=== PATIENT | male | born 1990 | race Caucasian/White ===

== ENCOUNTER 2016-11-18 15:15 | Inpatient (IN) | payer BC, OTHER ==
[~2016-11-18] VITALS: Ht 167.6 cm; Wt 86.2 kg
[2016-11-18 18:31] VITALS: BP 127/85
[2016-11-18] MEDS ORDERED: THIAMINE HCL 200 MG/2 ML VIAL IM ONE (19:00)
[2016-11-18] MEDS ORDERED: ONDANSETRON 4 MG/2 ML VIAL IM PRN (19:00)
[2016-11-18] MEDS ORDERED: LORAZEPAM 2 MG/1 ML VIAL IM PRN (19:00)
[2016-11-18] MEDS ORDERED: BUPRENORPHINE HCL 2 MG TAB.SUBL SL PRN (19:00)
[2016-11-18] MEDS ORDERED: LORAZEPAM 1 MG TABLET PO PRN ×2 (19:00)
[2016-11-18] MEDS ORDERED: HYDROXYZINE PAMOATE 25 MG CAPSULE PO PRN (19:00)
[2016-11-18] MEDS ORDERED: IBUPROFEN 600 MG TABLET PO PRN (19:00)
[2016-11-18] MEDS ORDERED: MAGNESIUM HYDROXIDE 30 ML LIQUID UDC PO PRN (19:00)
[2016-11-18] MEDS ORDERED: MAG HYDROX/AL HYDROX/SIMETH 30 ML LIQUID UDC PO PRN (19:00)
[2016-11-18] MEDS ORDERED: LOPERAMIDE HCL 2 MG CAPSULE PO PRN ×2 (19:00)
[2016-11-18] MEDS ORDERED: diphenhydrAMINE 50 MG CAPSULE PO PRN (19:00)
[2016-11-18] MEDS ORDERED: MIRALAX 17 GM POWD.PACK PO PRN (19:00)
[2016-11-18] MEDS ORDERED: ACETAMINOPHEN 325 MG TABLET PO PRN (19:00)
[2016-11-18 20:00] VITALS: BP 116/83
--- NOTE | 2016-11-18 20:15 | NUR ---
ADMISSION NOTE Pt arrived ambulatory to the [facility] [place] 3rd floor (accompanied by [facility] staff) at approximately 1816. Pt is a 26 y/o male (born on 1990) being admitted for ETOH, Heroin, and Marijuana dependence and use. Pt has NKA, and denies any PMH. Pt denies having any history of seizures also. Pt is unmarried and has one daughter. Pt stated " I'm homeless, and I don't work right now." Pt reported his highest level of education being high school. Pt reported not having a primary care physician or a psych doctor at this time. Pt didn't arrive with any medication but reported " I used to take Seroquel 100 mg at night. That's just what they gave me, but I wasn't diagnosed with insomnia." Pt was then asked about his substance use history including; what substance(s) he uses, when did he first start using them, what route, how frequent, usual amount he uses and the date and amount of his last use. Pt stated " I started using Heroin when I was 20 y/o. I needles and I share needles too. I relapsed 3 months ago and since then I've been using about 1 gram everyday. I has half a gram (0.5 g) before I came here today (11/18/16). I started drinking and smoking marijuana when I was 18 y/o. I've been drinking about a fifth (750 ml) of Vodka and smoking 1 gram a day for the past 3 months. I smoked 1 gram of weed (marijuana) and I had half a pint of Vodka before I came here (11/18/16). " Pt was then asked about his treatment hx. Pt replied "I've been to so many rehabs. The last one I've been to is [facility] in June." Upon assessment pt is notably intoxicated aeb delayed speech and slurring, but pt is a/o x 4 with no changes in LOC. Pt's odor is that of alcohol. Pt is fidgety, but calm and cooperative with a flat affect. Pt's breathing is even and unlabored with no SOB noted or reported. Skin is dry and intact with no bruises, lesions, lacerations, rashes, abrasions noted or reported. Skin turgor indicates adequate hydration. Capillary refill is less than 3 seconds. Bowel sounds present in all 4 quadrants. Abdomen soft and non distended. Hand acid condenser strong bilaterally, and PERRLA noted. Pt denies any pain/discomfort at this time. Pt was encouraged to notify staff of any changes in condition or of any concerns. Pt verbalized an understanding. All safety measures in place; side rails up x 2, bed locked and in low position, and call light within reach. MD aware of pt's arrival. Will continue to monitor.
[2016-11-18 20:28] LABS: BASOPHILS % (AUTO) 0.3 % (0.0-2.0); EOSINOPHILS # (AUTO) 0.2 K/uL (0.0-0.7); EOSINOPHILS % (AUTO) 2.4 % (0.0-7.0); HEMATOCRIT 40.1 % (36.7-47.1); HEMOGLOBIN 13.9 g/dL (12.5-16.3); LYMPHOCYTES # (AUTO) 2.9 K/uL (20.0-40.0); LYMPHOCYTES % (AUTO) 42.4 % (20.5-51.5); MEAN CORPUSCULAR HEMOGLOBIN 29.6 uug (23.8-33.4); MEAN CORPUSCULAR HGB CONC 35 g/dL (32.5-36.3); MEAN CORPUSCULAR VOLUME 85.7 fL (73.0-96.2); MONOCYTES # (AUTO) 0.7 K/uL (2.0-10.0); MONOCYTES % (AUTO) 10.3 % (0.0-11.0); NEUTROPHILS # (AUTO) 3.1 K/uL (1.8-8.9); NEUTROPHILS % (AUTO) 44.6 % (38.5-71.5); PLATELET COUNT (AUTO) 268 K/uL (152-348); RED BLOOD CELL COUNT(AUTO) 4.68 MIL/uL (4.06-5.63); RED CELL DISTRIBUTION WIDTH 13.4 % (12.1-16.2); WHITE BLOOD COUNT (AUTO) 6.9 K/uL (3.6-10.2)
[2016-11-18 20:31] LABS: *AMPHETAMINE, URINE NEGATIVE (NEGATIVE); *BARBITURATE, URINE NEGATIVE (NEGATIVE); *CANNABINOID, URINE POSITIVE (NEGATIVE); *COCCAINE, URINE NEGATIVE (NEGATIVE); *OPIATE, URINE POSITIVE (NEGATIVE); *PHENCYCLIDINE SCREEN,URINE NEGATIVE (NEGATIVE)
[2016-11-18 20:44] LABS: ALBUMIN 3.6 g/dL (3.4-5.0); BILIRUBIN,TOTAL 0.6 mg/dL (0.2-1.0); CALCIUM 8.4 mg/dL (8.5-10.1); CREATININE 0.9 mg/dL (0.6-1.3); POTASSIUM 3.9 mmol/L (3.5-5.1); TOTAL PROTEIN, SERUM 8.1 g/dL (6.4-8.2)
--- NOTE | 2016-11-18 20:45 | NUR ---
REPORTED CRITICAL LAB VALUE. Tian Martin from [facility] lab called at approximately 2044 to report a blood alcohol level of 0.17 for this pt. At this time pt ambulates with a steady gait and has vitals within normal limits. Will continue to monitor.
[2016-11-18 20:55] LABS: THYROID STIMULATING HORMONE 2.782 mIU/mL (0.358-3.740)
[2016-11-18 21:08] LABS: HIV-1 p24 ANTIGEN NON REACTIVE (NONREACTIVE); HIV-1/2 ANTIBODY NON REACTIVE (NONREACTIVE)
[2016-11-19] VITALS: BP 113/57
[2016-11-19 04:00] VITALS: BP 129/74
--- NOTE | 2016-11-19 07:08 | NUR ---
END OF SHIFT NOTE Pt is a 26 y/o male admitted for ETOH, Heroin, and Marijuana dependence and use. Pt has NKA, and denies any PMH. Pt was placed on a 5 day Ativan and 5 Subutex taper , scheduled to start today. Pt didn't receive any PRNS during the day shift. Pt slept for a total of 7 hours. All safety measures in place; side rails up x 2, bed locked and in low position, and call light within reach. Endorsed to the oncoming nurse.
--- NOTE | 2016-11-19 07:17 | NUR ---
Start of Shift Notes: Received patient in his room. Alert and verbally responsive. Oriented x 4. Respirations even and unlabored. No SOB noted. Skin warm and dry to touch. Abdomen soft and non-distended with (+) BS in all 4 quadrants. No complains of N/V/D or constipation noted. No complains of abdominal discomfort noted. Bladder non-distended. No complains of dysuria noted. Voids independently. Ambulatory ad gilles with steady gait. Patient is a 26 year old male admitted for ETOH and opiate dependence who was placed on a 5-day Ativan and 5-day Subutex taper as ordered which will be started today. Denies any past medical hx. NKA. FULL CODE. Regular diet. On fall and seizure precautions. Educated patient on the current plan of care for the day and the medication regimen. Encouraged oral fluid intake and encouraged group participation to learn new skills to prevent relapse.
[2016-11-19 08:00] VITALS: BP 128/83
[2016-11-19] MEDS ORDERED: TUBERCULIN,PURIF.PROT.DERIV. 5 TU/0.1 ML TEST ID ONE (09:00)
[2016-11-19] MEDS: FOLIC ACID 1 MG TABLET PO SCH (09:07)
[2016-11-19] MEDS: METHOCARBAMOL 750 MG TABLET PO PRN (09:07)
[2016-11-19] MEDS: DICYCLOMINE HCL 20 MG TABLET PO PRN (09:07)
[2016-11-19] MEDS: BUPRENORPHINE HCL 2 MG TAB.SUBL SL SCH ×4 (09:07→21:54)
[2016-11-19] MEDS: THIAMINE HCL 100 MG TABLET PO SCH (09:08)
[2016-11-19] MEDS: LORAZEPAM 1 MG TABLET PO SCH ×4 (09:08→21:54)
[2016-11-19] MEDS: MULTIVITAMINS,THERAPEUTIC TABLET PO SCH (09:08)
--- NOTE | 2016-11-19 09:08 | NUR ---
Robaxin 750mg and Bentyl 20mg PO given: Patient noted with complain of 5/10 body aches related to withdrawal symptoms. Also noted with complains of abdominal cramps. COWS 8. Medicated patient with Robaxin 750mg and Bentyl 20 mg PO as ordered. Will monitor for effectiveness.
--- NOTE | 2016-11-19 10:08 | NUR ---
Re-assessment: Per patient, PRN Robaxin and Bentyl were mildly effective in reducing body aches and stomach cramps. Dr. Bree benz.
[2016-11-19] MEDS: ONDANSETRON ODT 4 MG TAB.RAPDIS SL PRN ×2 (10:59→22:00)
--- NOTE | 2016-11-19 10:59 | NUR ---
PRN Ativan 2 mg PO given/Zofran 4 mg ODT given: Patient's CIWA 16 - presented with agitation, moderate anxiety and intermittent nausea. Per MD, administer Ativan 2 mg PO from PRN dose and add Zofran 4 mg ODT. Will monitor for effectiveness.
[2016-11-19] MEDS ORDERED: CLONIDINE HCL 0.1 MG TABLET PO PRN (11:15)
--- NOTE | 2016-11-19 11:34 | NUR ---
New Orders: New orders received from Dr. Giron for patient to be on Clonidine 0.1mg PO PRN. Orders noted and carried out. Education provided.
--- NOTE | 2016-11-19 11:59 | NUR ---
Re-assessment: Per patient, Zofran has been effective in ceasing nausea. Ativan 2 mg PO has been effectiev in reducing patient's withdrawal symptoms. Less agitation, less anxiety noted. CIWA 7.
[2016-11-19 12:00] VITALS: BP 116/75
[2016-11-19] MEDS ORDERED: QUET100T PO (14:14)
[2016-11-19 16:00] VITALS: BP 131/86
--- NOTE | 2016-11-19 18:42 | NUR ---
End of Shift Notes: Patient is a 26 year old male admitted for ETOH/opiate and marijuana dependence who was placed on a 5-day Subute and 5-day Ativan taper as ordered. No adverse reactions noted. Taper was started today. Denies any past medical hx. Prior to admission patient was using 1 gram of Heroin IV and 5th of Vodka x 3 months. On fall and seizure precautions. VS monitored closely. No significant abnormalities noted. Patient's withdrawal symptoms were closely monitored. Patient presented with chills, hot flashes, anxiety, agitation, sweating, pupil dilation, muscle aches, joint pain, restlessness, nausea and fatigue. Initial COWS 8, CIWA 7, then increased to CIWA 16 at 1059. Patient was medicated with PRN Ativan 2 mg at 1059 and Zofran due to high CIWA score and nausea with help after 1 hour. Last COWS 5/CIWA 5. Per patient, Ativan and Subutex has been helping him with his withdrawal symptoms. Unable to participate in group today due to his withdrawal symptoms. Oral fluids encouraged. Call light in reach. All needs met and attended. Will continue to monitor closely.
[2016-11-19 20:00] VITALS: BP 135/84
--- NOTE | 2016-11-19 20:13 | NUR ---
START OF SHIFT NOTE Pt is a 26 y/o male admitted for ETOH, Heroin, and Marijuana dependence and use. Pt has NKA, and denies any PMH. Per day shift pt started a 5 day Ativan and 5 Subutex taper , and is tolerating medication well with no s/e or a/r reported. Pt received Ativan 2 mg PO x 1 , Robaxin 750 mg PO PRN , Bentyl 20 mg PO PRN, and Zofran 4 mg ODT during the day shift. last COW: 5 and CIWA: 5 (1600). At this time pt is in the recreational room with others watching a comedy show. Pt stated " I'm doing alright." Pt denied any pain/discomfort at this time. Pt was encouraged to notify staff of any changes in condition or of any concerns. Pt verbalized an understanding. Will continue to monitor.
--- NOTE | 2016-11-19 22:00 | NUR ---
ZOFRAN PRN ADMINISTRATION Pt stated "Can I have something for my nausea?" Zofran 4 mg ODT PRN was given. Pt was encouraged to notify staff of any changes in condition or of any concerns. Pt verbalized an understanding. All safety measures in place. Will monitor for effectiveness.
--- NOTE | 2016-11-19 23:00 | NUR ---
MAURIZIO PRN REASSESSMENT Pt stated " I'm not nauseous anymore. PRN effective. Will continue to monitor.
[2016-11-20] VITALS: BP 123/90
--- NOTE | 2016-11-20 02:56 | NUR ---
BENADRYL PRN ADMINISTRATION Pt stated " I can't fall asleep. Is there anything I can take?" Benadryl 50 mg PO PRN was given. Pt was encouraged to notify staff of any changes in condition or of any concerns. Pt verbalized an understanding. All safety measures in place. Will monitor for effectiveness.
--- NOTE | 2016-11-20 03:56 | NUR ---
BENADRYL PRN REASSESSMENT Pt is asleep in bed with no signs of discomfort/distress noted. Breathing is even and unlabored. PRN effective. All safety measures in place. Will continue to monitor.
--- NOTE | 2016-11-20 04:00 | NUR ---
COW, CIWA, AND VITALS REFUSED Pt refused to be assessed and have vitals taken at this time. Pt was encouraged x 3 with risks and benefits explained but the pt still declined. All safety measures in place. Will continue to monitor. Addendum: 11/20/16 at 0639 by PIPER DURON LVN Amended: Links added.
--- NOTE | 2016-11-20 07:35 | NUR ---
Start of Shift Notes: Received patient in his room. Alert and verbally responsive. Oriented x 4. Respirations even and unlabored. No SOB noted. Skin warm and dry to touch. Abdomen soft and non-distended with (+) BS in all 4 quadrants. No complains of N/V/D or constipation noted. No complains of abdominal discomfort noted. Bladder non-distended. No complains of dysuria noted. Voids independently. Ambulatory ad gilles with steady gait. Patient is a 26 year old male admitted for ETOH and opiate dependence who was placed on a 5-day Ativan and 5-day Subutex taper that was started on 11/19/2016. Denies any past medical hx. NKA. FULL CODE. Regular diet. On fall and seizure precautions. Educated patient on the current plan of care for the day and the medication regimen. Encouraged oral fluid intake and encouraged group participation to learn new skills to prevent relapse.
--- NOTE | 2016-11-20 07:37 | NUR ---
END OF SHIFT NOTE Pt is a 26 y/o male admitted for ETOH, Heroin, and Marijuana dependence and use. Pt has NKA, and denies any PMH. Pt was placed on a 5 day Ativan and 5 Subutex taper(day 2) , andf is tolerating medication well, with no s/e or a/r reported or noted. Pt received Zofran 4 mg ODT and Benadryl 50 mg PO PRN during the shift. Pt slept for a total of 4 hours. All safety measures in place; side rails up x 2, bed locked and in low position, and call light within reach. Endorsed to the oncoming nurse.
[2016-11-20 08:00] VITALS: BP 108/77
[2016-11-20] MEDS: LORAZEPAM 1 MG TABLET PO SCH ×3 (08:27→21:25)
[2016-11-20] MEDS: FOLIC ACID 1 MG TABLET PO SCH (08:27)
[2016-11-20] MEDS: ONDANSETRON ODT 4 MG TAB.RAPDIS SL PRN (08:27)
[2016-11-20] MEDS: MULTIVITAMINS,THERAPEUTIC TABLET PO SCH (08:27)
[2016-11-20] MEDS: DICYCLOMINE HCL 20 MG TABLET PO PRN (08:27)
[2016-11-20] MEDS: THIAMINE HCL 100 MG TABLET PO SCH (08:27)
--- NOTE | 2016-11-20 08:27 | NUR ---
PRN Zofran/Bentyl/Robaxin/Motrin/Clonidine PO given: Patient's COWS 11, CIWA 13. Presented with chills, hot flashes, sweating, nausea, muscle aches and pains 6/10, headache 6/10, stomach cramps, anxiety, pupil dilation and nausea. Medicated patient with the above meds. Will continue to monitor for effectiveness.
[2016-11-20] MEDS: BUPRENORPHINE HCL 2 MG TAB.SUBL SL SCH ×3 (08:28→21:00)
[2016-11-20] MEDS: METHOCARBAMOL 750 MG TABLET PO PRN (08:28)
[2016-11-20 09:07] LABS: HCV AB <0.1 s/co ratio (0.0-0.9); HEPATITIS B CORE AB, IgM Negative (Negative); HEPATITIS B SURFACE AG Negative (Negative)
[2016-11-20 09:27] LABS: ALBUMIN 3.4 g/dL (3.4-5.0); BILIRUBIN,DIRECT 0.1 mg/dL (0.0-0.2); BILIRUBIN,TOTAL 0.5 mg/dL (0.2-1.0); CALCIUM 9.1 mg/dL (8.5-10.1); CREATININE 0.8 mg/dL (0.6-1.3); MAGNESIUM 2.2 mg/dL (1.8-2.4); POTASSIUM 4.3 mmol/L (3.5-5.1); TOTAL PROTEIN, SERUM 7.8 g/dL (6.4-8.2)
--- NOTE | 2016-11-20 09:27 | NUR ---
Re-assessment: Per patient, PRN Zofran, Robaxin, Motrin, Bentyl and Clonidine were effective in reducing nausea, headache, muscle aches, PL 2/10, chills, abdominal cramps, anxiety and hot flashes. Will continue to monitor closely.
[2016-11-20 12:00] VITALS: BP 102/53
[2016-11-20] MEDS: GABAPENTIN 300 MG CAPSULE PO SCH ×2 (12:22→16:30)
--- NOTE | 2016-11-20 12:47 | NUR ---
Therapist encouraged client to attend groups.
[2016-11-20] MEDS: BACLOFEN 10 MG TABLET PO SCH ×2 (14:05→21:25)
[2016-11-20] MEDS: CLONIDINE HCL 0.1 MG TABLET PO SCH ×2 (14:05→21:00)
[2016-11-20] MEDS: DICYCLOMINE HCL 20 MG TABLET PO SCH ×2 (14:05→21:25)
[2016-11-20 16:00] VITALS: BP 91/51
--- NOTE | 2016-11-20 16:30 | NUR ---
Mylanta 30cc PO given: Patient requested for Mylanta due to heatburn. PRN Mylanta 30cc PO was given as ordered. Will monitor for effectiveness.
--- NOTE | 2016-11-20 17:30 | NUR ---
Re-assessment: Per patient, PRN Mylanta was effective in reducing heartburn.
--- NOTE | 2016-11-20 18:50 | NUR ---
End of Shift Notes: Patient is a 26 year old male admitted for ETOH/opiate and marijuana dependence who was placed on a 5-day Subute and 5-day Ativan taper as ordered. No adverse reactions noted. Taper was started today. Denies any past medical hx. Prior to admission patient was using 1 gram of Heroin IV and 5th of Vodka x 3 months. On fall and seizure precautions. VS monitored closely. No significant abnormalities noted. Patient's withdrawal symptoms were closely monitored. Patient presented with chills, hot flashes, anxiety, agitation, sweating, , muscle aches, joint pain, nausea and fatigue. Initial COWS 11, CIWA 13. Patient was medicated with PRN Zofran, Robaxin, Motrin, Bentyl and Clonidine as ordered with help after 1 hour. Last COWS 4/CIWA 4. Mylanta 30cc PO PRN was given at 1630 due to complain of heartburn with help after 1 hour. Patient was started on routine Gabapentin, Baclofen, Clonidine and Bentyl as ordered to manage his withdrawal symptoms. Per patient, Ativan and Subutex has been helping him with his withdrawal symptoms. Unable to participate in group today due to his withdrawal symptoms. Oral fluids encouraged. Call light in reach. All needs met and attended. Will continue to monitor closely.
[2016-11-20 20:00] VITALS: BP 90/51
--- NOTE | 2016-11-20 20:20 | NUR ---
START OF SHIFT NOTE Pt is a 26 y/o male admitted for ETOH, Heroin, and Marijuana dependence and use. Pt has NKA, and denies any PMH. Per day shift pt continues on a 5 day Ativan and 5 Subutex taper (day 2) , and is tolerating medication well with no s/e or a/r reported. New orders for Seroquel 100 mg PO QHS was give. Noted and carried out. Pt received Zofran 4 mg ODT PRN, Robaxin 750 mg PO PRN, Motrin PO PRN, Bentyl PO PRN, Clonidine 0.1 mg PO PRN, and Mylanta PO PRN during the day shift. last COW: 4 and CIWA: 4 (1600). At this time pt is asleep in bed with no signs of discomfort/distress noted. Breathing is even and unlabored. All safety measures in place; side rails up x 2, bed locked and in low position, Will continue to monitor.
[2016-11-20] MEDS: QUETIAPINE FUMARATE 100 MG TABLET PO SCH (21:26)
--- NOTE | 2016-11-21 | NUR ---
PATRICIO, ERVIN, AND VITALS REFUSED Pt refused to be assessed and have vitals taken at this time. Pt was encouraged x 3 with risks and benefits explained but the pt refused. All safety measures in place. Will continue to monitor. Addendum: 11/21/16 at 0205 by PIPER DURON LVN Amended: Links added.
--- NOTE | 2016-11-21 04:00 | NUR ---
PATRICIO, ERVIN, AND VITALS REFUSED Pt is refused to be assessed and have vitals taken at this time. Pt was encouraged x 3 with risks and benefits explained, but the pt still refused. All safety measures in place. Will continue to monitor. Addendum: 11/21/16 at 0549 by PIPER DURON LVN Amended: Links added.
--- NOTE | 2016-11-21 07:00 | NUR ---
END OF SHIFT NOTE Pt is a 26 y/o male admitted for ETOH, Heroin, and Marijuana dependence and use. Pt has NKA, and denies any PMH. Pt was placed on a 5 day Ativan and 5 Subutex taper(day 3) , and is tolerating medication well, with no s/e or a/r reported or noted. Pt didn't receive any PRNS during the shift. Last COW: 0 and CIWA: 0 (1999). Pt slept for a total of 7 hours. All safety measures in place; side rails up x 2, bed locked and in low position, and call light within reach. Endorsed to the oncoming nurse.
--- NOTE | 2016-11-21 07:31 | NUR ---
START OF SHIFT NOTE: Received report from production supervisor off shift nurse. Pt is a 26 y/o male admitted 11-18-16 for ETOH, Heroin, and Marijuana dependence. Pt is on a 5 day Subutex and 5 day Ativan taper. Tolerating well. Pt is alert and oriented X4. Color good, skin warm and dry. Respirations even and unlabored. Pt resting in bed at this time. Safety precautions observed. Call light within reach. Will continue to monitor.
[2016-11-21 08:07] VITALS: BP 114/70
[2016-11-21] MEDS ORDERED: BUPRENORPHINE HCL 2 MG TAB.SUBL SL SCH (09:00)
[2016-11-21] MEDS: MULTIVITAMINS,THERAPEUTIC TABLET PO SCH (09:31)
[2016-11-21] MEDS: LORAZEPAM 1 MG TABLET PO SCH ×4 (09:31→20:30)
[2016-11-21] MEDS: GABAPENTIN 300 MG CAPSULE PO SCH ×2 (09:31→14:31)
[2016-11-21] MEDS: FOLIC ACID 1 MG TABLET PO SCH (09:31)
[2016-11-21] MEDS: BACLOFEN 10 MG TABLET PO SCH (09:31)
[2016-11-21] MEDS: DICYCLOMINE HCL 20 MG TABLET PO SCH ×3 (09:32→20:31)
[2016-11-21] MEDS: THIAMINE HCL 100 MG TABLET PO SCH (09:32)
[2016-11-21] MEDS: CLONIDINE HCL 0.1 MG TABLET PO SCH ×3 (09:32→20:31)
--- NOTE | 2016-11-21 09:35 | NUR ---
VSS COWS 8 CIWA 9 c/o body aches, sweating, nausea and anxiety.
[2016-11-21 10:19] LABS: CALCIUM 9.1 mg/dL (8.5-10.1); CARBON DIOXIDE 21 mmol/L (21-32); CHLORIDE 108 mmol/L (98-107); CREATININE 0.7 mg/dL (0.6-1.3); GFR > 130 mL/min (>60); GLUCOSE 94 mg/dL (74-106); MAGNESIUM 2.2 mg/dL (1.8-2.4); PHOSPHOROUS 5.1 mg/dL (2.5-4.9); POTASSIUM 4.6 mmol/L (3.5-5.1); SODIUM SERUM 142 mmol/L (136-145); UREA NITROGEN, BLOOD 10 mg/dL (7-18)
[2016-11-21] MEDS ORDERED: KETOROLAC TROMETHAMINE 30 MG INJ IM PRN (12:00)
[2016-11-21 12:46] VITALS: BP 110/69
--- NOTE | 2016-11-21 13:35 | NUR ---
VSS CIWA 8 Pt c/o sweating, anxiety and nausea.
[2016-11-21] MEDS: BACLOFEN 20 MG TABLET PO SCH ×2 (14:31→20:31)
[2016-11-21] MEDS: BUPRENORPHINE HCL 2 MG TAB.SUBL SL SCH ×2 (14:31→20:32)
--- NOTE | 2016-11-21 14:38 | NUR ---
COWS 7 C/O nausea, sweating and anxiety. Also c/o constipation. Miralax given po prn
[2016-11-21] MEDS ORDERED: BACLOFEN 10 MG TABLET PO SCH (15:00)
[2016-11-21 17:25] VITALS: BP 118/74
--- NOTE | 2016-11-21 18:38 | NUR ---
END OF SHIFT NOTE: Report given to assembler 1st shift nurse. Pt is a 26 y/o male admitted 11-18-16 for ETOH, Heroin, and Marijuana dependence. Pt is on a 5 day Subutex and 5 day Ativan taper. Tolerating well. Pt is alert and oriented X4. Color good, skin warm and dry. Respirations even and unlabored. Vital signs have remained stable throughout shift. Last COWS 7 CIWA 7 @ 1700. Pt received Miralax po prn @ 1435 for constipation. Safety precautions observed. Call light within reach.
[2016-11-21 20:00] VITALS: BP 130/92
--- NOTE | 2016-11-21 20:00 | NUR ---
START OF SHIFT NOTE PATIENT ALERT AND ORIENTED X 4. RESPIRATION EVEN AND UNLABORED. PATIENT REPORTS ANXIETY, HEADACHE 7/10, RESTLESS LEGS, STUFFY NOSE AND DECREASE IN APPETITE. PATIENT ATTENDED GROUPS. NO N/V. RECEIVED REPORT FROM DAY SHIFT NURSE. PATIENT IS A 26 YEAR OLD MALE, ADMITTED FOR ETOH/HEROIN DEPENDENCE. PATIENT IS ON 3RD DAY OF HIS 5 DAY ATIVAN AND 5 DAY SUBUTEX TAPER, TOLERATED WELL. NO ADVERSE REACTION. PATIENT IS FULL CODE, REGULAR DIET AND NO KNOWN ALLERGY. PATIENT DENIES ANY PAST MEDICAL HISTORY. NO SEIZURE HISTORY. PATIENT DRINKS 750 ML DAILY FOR 3 MONTHS, INJECTS 1 GRAM OF HEROIN FOR 3 MONTHS AND SMOKES 1 GRAM OF MARIJUANA FOR 3 MONTHS. SKIN INTACT. ON FALL/SEIZURE PRECAUTION. PATIENT WAS GIVEN MIRALAX DURING THE DAY. LAST CIWA 8 AND COWS 7. SAFETY MEASURES IN PLACE. CALL LIGHT IN REACH. WILL CONTINUE TO MONITOR.
[2016-11-21] MEDS: QUETIAPINE FUMARATE 100 MG TABLET PO SCH (20:31)
[2016-11-21] MEDS ORDERED: GABAPENTIN 300 MG CAPSULE PO SCH (21:00)
--- NOTE | 2016-11-21 21:58 | NUR ---
PRN MOM ADMINISTRATION PATIENT REPORTS DIFFICULTY PASSING STOOL. PRN MOM GIVEN. WILL MONITOR FOR EFFECTIVENESS
[2016-11-22] VITALS: BP 102/61
[2016-11-22 04:00] VITALS: BP 104/72
--- NOTE | 2016-11-22 07:14 | NUR ---
END OF SHIFT NOTE PATIENT ALERT AND ORIENTED X 4. RESPIRATION EVEN AND UNLABORED. PATIENT REPORTS ANXIETY, HEADACHE 7/10, RESTLESS LEGS, STUFFY NOSE AND DECREASE IN APPETITE DURING SHIFT. PATIENT ATTENDED GROUPS. NO N/V. PATIENT WAS GIVEN MOM DUE TO UNABLE TO PASS STOOL AT 2158. ENCOURAGE FLUIDS. ON FALL/SEIZURE PRECAUTION. PATIENT COMPLIANT WITH MEDICATION AND TREATMENT PLAN. SAFETY MEASURES IN PLACE. CALL LIGHT IN REACH. WILL CONTINUE TO MONITOR. SLEPT 8 HOURS 500 ML. VOIDED X 1 . NO BM. LAST COWS 0 AND CIWA 0. MOM INEFFECTIVE. ENDORSED TO DAY SHIFT NURSE.
--- NOTE | 2016-11-22 07:32 | NUR ---
START OF SHIFT NOTE: Received report from shift supervisor melting nurse. Pt is a 26 y/o male admitted 11-18-16 for ETOH, Heroin, and Marijuana dependence. Pt is on a 5 day Subutex and 5 day Ativan taper. Tolerating well. Pt is alert and oriented X4. Color good, skin warm and dry. Respirations even and unlabored. Pt resting in bed at this time. Safety precautions observed. Call light within reach. Will continue to monitor.
[2016-11-22 08:04] VITALS: BP 94/60
[2016-11-22] MEDS: MULTIVITAMINS,THERAPEUTIC TABLET PO SCH (08:35)
[2016-11-22] MEDS: LORAZEPAM 1 MG TABLET PO SCH ×3 (08:35→21:34)
[2016-11-22] MEDS: DICYCLOMINE HCL 20 MG TABLET PO SCH ×3 (08:35→21:35)
[2016-11-22] MEDS: BUPRENORPHINE HCL 2 MG TAB.SUBL SL SCH ×3 (08:35→21:36)
[2016-11-22] MEDS: THIAMINE HCL 100 MG TABLET PO SCH (08:35)
[2016-11-22] MEDS: GABAPENTIN 300 MG CAPSULE PO SCH ×3 (08:35→21:34)
[2016-11-22] MEDS: FOLIC ACID 1 MG TABLET PO SCH (08:35)
[2016-11-22] MEDS: BACLOFEN 20 MG TABLET PO SCH ×3 (08:35→21:35)
[2016-11-22] MEDS: CLONIDINE HCL 0.1 MG TABLET PO SCH ×3 (08:36→21:35)
--- NOTE | 2016-11-22 08:38 | NUR ---
VSS COWS 3 CIWA 4 Pt c/o anxiety, body aches and restless legs. States overall feels improved.
[2016-11-22 12:00] VITALS: BP 118/60
--- NOTE | 2016-11-22 15:11 | NUR ---
VSS COWS 2 CIWA 3. Pt c/o anxiety.
[2016-11-22 17:47] VITALS: BP 132/68
--- NOTE | 2016-11-22 18:45 | NUR ---
END OF SHIFT NOTE: Report given to welder 2nd shift nurse. Pt is a 26 y/o male admitted 11-18-16 for ETOH, Heroin, and Marijuana dependence. Pt is on a 5 day Subutex and 5 day Ativan taper. Tolerating well. Pt is alert and oriented X4. Color good, skin warm and dry. Respirations even and unlabored. Vital signs have remained stable throughout shift. Last COWS 2 CIWA 3 @ 1700. Safety precautions observed. Call light within reach.
[2016-11-22 20:00] VITALS: BP 129/97
--- NOTE | 2016-11-22 20:00 | NUR ---
Start of Shift Pt is a 26 year old male admitted for ETOH/Heroin dependence, placed on 5 day Subutex and 5 day Ativan taper. Pt denies any PMH, NKA, regular diet, fall/seizure precautions - no history of seizures and full code. Upon assessment, pt presented with mild anxiety, reports body aches, skin noted with moderate sweat, reports mild stomach cramps, respirations even and unlabored, denies SOB/chest pain, skin flushed - intact, bowel sounds active x4, abdomen soft. Safety measures in place, call light within reach, side rails up x2, bed locked and in low position. Will continue to monitor.
[2016-11-22] MEDS: QUETIAPINE FUMARATE 100 MG TABLET PO SCH (21:35)
[2016-11-23] VITALS: BP 100/55
--- NOTE | 2016-11-23 | NUR ---
Vital Signs BP 100/55, pulse 66, respirations 16, SpO2 99%, temp 97.6, no reports of pain 0/10 CIWA/COWS deferred d/t pt sleeping - to assess while pt is awake as ordered. Safety measures in place. Will continue to monitor.
[2016-11-23 04:00] VITALS: BP 95/56
--- NOTE | 2016-11-23 07:00 | NUR ---
End of Shift Pt is a 26 year old male admitted for ETOH/Heroin dependence, placed on 5 day Subutex and 5 day Ativan taper. Pt denies any PMH, NKA, regular diet, fall/seizure precautions - no history of seizures and full code. During shift, pt presented with mild anxiety, reports of body aches and abdominal cramping - scheduled taper medications administered, effective in management of s/s of withdrawal as reported by pt, COWS 2 and CIWA 2. No PRN medications administered. Pt slept for 6 hours intake of 855 ml PO and voids x1. Safety measures in place, call light within reach, side rails up x2, bed locked and in low position. Endorsed to day shift nurse.
--- NOTE | 2016-11-23 07:05 | NUR ---
Start of Shift Notes: Received patient in his room. Alert and verbally responsive. Oriented x 4. Respirations even and unlabored. No SOB noted. Skin warm and dry to touch. Abdomen soft and non-distended with (+) BS in all 4 quadrants. No complains of N/V/D or constipation noted. No complains of abdominal discomfort noted. Bladder non-distended. No complains of dysuria noted. Voids independently. Ambulatory ad gilles with steady gait. Patient is a 26 year old male admitted for ETOH and opiate dependence who was placed on a 5-day Ativan and 5-day Subutex taper that was started on 11/19/2016. No adverse reactions ntoed. Denies any past medical hx. NKA. FULL CODE. Regular diet. On fall and seizure precautions. Educated patient on the current plan of care for the day and the medication regimen. Encouraged oral fluid intake and encouraged group participation to learn new skills to prevent relapse. Safety precautions in place. All needs met and attended. Will continue to monitor throughout the day.
[2016-11-23 08:00] VITALS: BP 107/63
[2016-11-23 08:22] LABS: CREATININE 0.8 mg/dL (0.6-1.3); MAGNESIUM 2.2 mg/dL (1.8-2.4); PHOSPHOROUS 4.9 mg/dL (2.5-4.9); POTASSIUM 4.7 mmol/L (3.5-5.1)
[2016-11-23] MEDS: LORAZEPAM 1 MG TABLET PO SCH ×2 (08:23→21:22)
[2016-11-23] MEDS: THIAMINE HCL 100 MG TABLET PO SCH (08:23)
[2016-11-23] MEDS: BACLOFEN 20 MG TABLET PO SCH ×3 (08:23→21:22)
[2016-11-23] MEDS: CLONIDINE HCL 0.1 MG TABLET PO SCH ×3 (08:23→21:21)
[2016-11-23] MEDS: GABAPENTIN 300 MG CAPSULE PO SCH ×3 (08:23→21:21)
[2016-11-23] MEDS: DICYCLOMINE HCL 20 MG TABLET PO SCH ×3 (08:23→21:22)
[2016-11-23] MEDS: BUPRENORPHINE HCL 2 MG TAB.SUBL SL SCH ×2 (08:23→21:21)
[2016-11-23] MEDS: MULTIVITAMINS,THERAPEUTIC TABLET PO SCH (08:23)
[2016-11-23] MEDS: FOLIC ACID 1 MG TABLET PO SCH (08:23)
[2016-11-23 12:00] VITALS: BP 102/71
[2016-11-23 16:00] VITALS: BP 138/67
--- NOTE | 2016-11-23 18:48 | NUR ---
End of Shift Notes: Patient is a 26 year old male admitted for ETOH/opiate and marijuana dependence who was placed on a 5-day Subute and 5-day Ativan taper as ordered. No adverse reactions noted. Taper was started today. Denies any past medical hx. Prior to admission patient was using 1 gram of Heroin IV and 5th of Vodka x 3 months. On fall and seizure precautions. VS monitored closely. No significant abnormalities noted. Patient's withdrawal symptoms were closely monitored. Patient presented with anxiety, sweating, , abdominal cramps and fatigue. Initial COWS 6, CIWA 4. Last COWS 3/CIWA 3. Requires encouragement to attend group and participate in activites to increase socializations. Affect is flat, and appears withdrawn at times. Tolerating oral intake well. Call light in reach. All needs met and attended. Will continue to monitor closely. Safety precautions in place.
[2016-11-23 20:00] VITALS: BP 137/79
--- NOTE | 2016-11-23 20:00 | NUR ---
Start of Shift Pt is a 26 year old male admitted for ETOH/Heroin dependence, placed on 5 day Subutex and 5 day Ativan taper. Pt denies any PMH, NKA, regular diet, fall/seizure precautions - no history of seizures and full code. Upon assessment, pt reports mild aches throughout body, reports feeling less anxious at this time,, respirations even and unlabored, denies SOB/chest pain, skin flushed - intact, bowel sounds active x4, abdomen soft. Safety measures in place, call light within reach, side rails up x2, bed locked and in low position. Will continue to monitor.
[2016-11-23] MEDS: QUETIAPINE FUMARATE 100 MG TABLET PO SCH (21:22)
[2016-11-24] VITALS: BP 102/68
--- NOTE | 2016-11-24 | NUR ---
Vital Signs BP 102/68, pulse 85, respirations 18, SpO2 99%, temp 98, no reports of pain 0/10 CIWA/COWS deferred d/t pt sleeping - to assess while pt is awake as ordered. Safety measures in place. Will continue to monitor.
--- NOTE | 2016-11-24 04:00 | NUR ---
Pt refused to be woken up for 0400 Vital Signs Encouraged x3, however pt continued to refuse. CIWA/COWS deferred d/t pt sleeping - to assess while pt is awake as ordered. Safety measures in place. Will continue to monitor.
--- NOTE | 2016-11-24 07:00 | NUR ---
End of Shift Pt is a 26 year old male admitted for ETOH/Heroin dependence, placed on 5 day Subutex and 5 day Ativan taper. Pt denies any PMH, NKA, regular diet, fall/seizure precautions - no history of seizures and full code. During Shift, pt presented with mild aches throughout body, anxiety, skin flushed - scheduled medications administered, effective in management of s/s of withdrawal, COWS 3, CIWA 3. No PRN medications administered. Pt continues on scheduled taper. Pt slept for 5 hours, intake of 1343ml PO and voids x1. Safety measures in place, call light within reach, side rails up x2, bed locked and in low position. Endorsed to day shift nurse.
--- NOTE | 2016-11-24 07:30 | NUR ---
Start of shift note; Received report from night nurse. Patient is a 26 y/o male admitted on 11/18/16 for ETOH/Opiate dependence, Patient was placed on a 5 day Subutex and 5 day Ativan taper, no adverse reactions noted. NKA, full code status, regular diet. Patient reported history of anxiety and insomnia. Patient is on fall and seizure precaution. Will continue to monitor patient.
[2016-11-24 08:00] VITALS: BP 124/98
[2016-11-24] MEDS ORDERED: BUPRENORPHINE HCL 2 MG TAB.SUBL SL SCH (09:00)
[2016-11-24] MEDS: BACLOFEN 20 MG TABLET PO SCH ×2 (09:12→14:51)
[2016-11-24] MEDS: THIAMINE HCL 100 MG TABLET PO SCH (09:12)
[2016-11-24] MEDS: FOLIC ACID 1 MG TABLET PO SCH (09:12)
[2016-11-24] MEDS: GABAPENTIN 300 MG CAPSULE PO SCH ×3 (09:12→21:20)
[2016-11-24] MEDS: DICYCLOMINE HCL 20 MG TABLET PO SCH ×3 (09:12→21:21)
[2016-11-24] MEDS: CLONIDINE HCL 0.1 MG TABLET PO SCH ×3 (09:12→21:20)
[2016-11-24] MEDS: MULTIVITAMINS,THERAPEUTIC TABLET PO SCH (09:12)
[2016-11-24 12:00] VITALS: BP 119/62
[2016-11-24 14:48] LABS: *AMPHETAMINE, URINE NEGATIVE (NEGATIVE); *BARBITURATE, URINE NEGATIVE (NEGATIVE); *CANNABINOID, URINE NEGATIVE (NEGATIVE); *COCCAINE, URINE NEGATIVE (NEGATIVE); *OPIATE, URINE NEGATIVE (NEGATIVE); *PHENCYCLIDINE SCREEN,URINE NEGATIVE (NEGATIVE)
[2016-11-24 16:00] VITALS: BP 126/83
--- NOTE | 2016-11-24 18:58 | NUR ---
End of shift note; Patient is AOX4. Patient is a 26 y/o male admitted on 11/18/16 for ETOH/Opiate dependence, Patient was placed on a 5 day Subutex and 5 day Ativan taper completed taper without any adverse reactions noted. NKA, full code status, regular diet. Patient reported history of anxiety and insomnia. Patient is on fall and seizure precaution. Patient remained compliant with treatment plan. Patient is medically cleared for discharge tomorrow. Met all needs.
[2016-11-24 20:00] VITALS: BP 141/71
--- NOTE | 2016-11-24 20:00 | NUR ---
Start of Shift Note: Report received from day shift nurse. Pt is a 26 yo male admitted on 11/18/16 for medically-supervised withdrawal from ETOH and opiates. Pt reports drinking 750mL vodka and using 1gm IV heroin daily for 3 months. Pt also reports daily use of marijuana. Pt has completed 5-day Ativan and Subutex tapers and is to discharge tomorrow. Last day shift COWS=2, CIWA=2. Pt reports NKDA/NKFA. Pt is on a regular diet. Pt denies any past med hx. Pt received in room after attending group, and verbalizes readiness for discharge. Pt noted with fine tremor, reports mild anxiety. Bed is in low position and locked, side rails up x2, call light within reach. Will continue to monitor.
[2016-11-24] MEDS ORDERED: BACLOFEN 20 MG TABLET PO PRN (21:00)
[2016-11-24] MEDS: QUETIAPINE FUMARATE 100 MG TABLET PO SCH (21:21)
[2016-11-25] VITALS: BP 105/55
--- NOTE | 2016-11-25 | NUR ---
COWS/CIWA Deferred: COWS and CIWA assessments are deferred wile patient is sleeping. V/S: 97.8, 81, 18, 96%, 105/55. Addendum: 11/25/16 at 0155 by MACKENZIE MATTSON RN Amended: Links added.
[2016-11-25] MEDS ORDERED: Baclofen PO (00:04)
[2016-11-25] MEDS ORDERED: HYDR-3895 PO (00:04)
[2016-11-25] MEDS ORDERED: DICY20TA28 PO (00:04)
[2016-11-25] MEDS ORDERED: CLON0.1T14 PO (00:04)
[2016-11-25] MEDS ORDERED: Gabapentin PO ×2 (00:04)
[2016-11-25] MEDS ORDERED: Ibuprofen PO (00:04)
[2016-11-25 04:00] VITALS: BP 100/59
--- NOTE | 2016-11-25 04:00 | NUR ---
COWS/CIWA Deferred: Ordered 04:00 COWS and CIWA assessments are deferred for sleep. No s/s of acute distress noted. V/S: 97.7, 58, 16, 98%, 100/59. All safety precautions are in place. Will continue to monitor. Addendum: 11/25/16 at 0544 by MACKENZIE MATTSON RN Amended: Links added.
--- NOTE | 2016-11-25 07:04 | NUR ---
End of Shift Note: Pt is a 26 yo male admitted to [facility] on 11/18/16 for medically-supervised withdrawal from ETOH and opiates. Pt denies any PMHx. Pt reports NKDA/NKFA. Pt is on a regular diet. Pt reports drinking 750mL vodka and using 1gm IV heroin daily for 3 months. Pt also reports daily use of marijuana. Pt has completed 5-day Ativan and Subutex tapers and is to discharge today. Scheduled medication regime effectively managed s/s of withdrawal this shift. Last COWS=5, CIWA=2 at 20:00. No PRN medications were necessary this shift. V/S stable throughout shift, with elevated HR of 106 at 20:00. Total fluid intake this shift: 651 ml; output: urine x 1 and BM x 0. Pt currently in bed and slept 7 hours this shift. Pt endorsed to day shift nurse.
--- NOTE | 2016-11-25 07:05 | NUR ---
Start of Shift Notes: Received patient in his room. Alert and verbally responsive. Oriented x 4. Respirations even and unlabored. No SOB noted. Skin warm and dry to touch. Abdomen soft and non-distended with (+) BS in all 4 quadrants. No complains of N/V/D or constipation noted. No complains of abdominal discomfort noted. Bladder non-distended. No complains of dysuria noted. Voids independently. Ambulatory ad gilles with steady gait. Patient is a 26 year old male admitted for ETOH and opiate dependence who was placed on a 5-day Ativan and 5-day Subutex taper that was started on 11/19/2016. No adverse reactions noted. Completed taper. Denies any past medical hx. NKA. FULL CODE. Regular diet. On fall and seizure precautions. Educated patient on the current plan of care for the day and the medication regimen. Educated patient on the discharge process. Patient verbalized good understanding. Encouraged oral fluid intake and encouraged group participation to learn new skills to prevent relapse. Safety precautions in place. All needs met and attended. Will continue to monitor throughout the day.
[2016-11-25 08:00] VITALS: BP 106/75
[2016-11-25 08:03] VITALS: BP 107/65
[2016-11-25] MEDS: MULTIVITAMINS,THERAPEUTIC TABLET PO SCH (08:03)
[2016-11-25] MEDS: GABAPENTIN 300 MG CAPSULE PO SCH (08:03)
[2016-11-25] MEDS: FOLIC ACID 1 MG TABLET PO SCH (08:03)
[2016-11-25] MEDS: CLONIDINE HCL 0.1 MG TABLET PO SCH (08:03)
[2016-11-25] MEDS: DICYCLOMINE HCL 20 MG TABLET PO SCH (08:03)
[2016-11-25] MEDS: THIAMINE HCL 100 MG TABLET PO SCH (08:03)
--- NOTE | 2016-11-25 09:30 | NUR ---
Discharged: Patient left the unit at this time in stable condition. COWS 1, CIWA 1 due to anxiety. No s/s of withdrawal noted. Alert and oriented x 4. VS stable. Education provided regarding patient's discharge instructions, including his UDS result, TB test, Rx from MD Giron and psych MD, and discharge packet. All clothings, belongings and valuables were returned to the patient. Patient did not bring in home meds. All needs met and attended. Escorted off the unit in stable condition.
[2016-11-30 13:06] LABS: *CANNABINOID (THC) Positive (.); *CODEINE Positive (.); *HYDROMORPHONE Negative (Cutoff=300); *OPIATES Positive ng/mL (Cutoff=300)
== END 2016-11-25 09:31 | disposition other institution (70) | DRG 895 ==
LOC: SRC 17:37
PROVIDERS: ADMIT Internal Medicine; ATTEND Internal Medicine
PROC: HZ2ZZZZ Detoxification Services for Substance Abuse Treatment (ICD-10-PCS; principal; 2016-11-18)
PROC: HZ31ZZZ Individual Counseling for Substance Abuse Treatment, Behavioral (ICD-10-PCS; 2016-11-20)
PROC: HZ41ZZZ Group Counseling for Substance Abuse Treatment, Behavioral (ICD-10-PCS; 2016-11-21)
DX: F10.220 Alcohol dependence with intoxication, uncomplicated (principal); F10.230 Alcohol dependence with withdrawal, uncomplicated; F11.23 Opioid dependence with withdrawal; Y90.9 Presence of alcohol in blood, level not specified; G47.00 Insomnia, unspecified; Z59.0 Homelessness; Z83.3 Family history of diabetes mellitus; Z59.1 Inadequate housing; F41.9 Anxiety disorder, unspecified; F17.210 Nicotine dependence, cigarettes, uncomplicated; F12.90 Cannabis use, unspecified, uncomplicated; E86.0 Dehydration; E86.1 Hypovolemia; E83.39 Other disorders of phosphorus metabolism
CPT/HCPCS: 36415; 70030-TC; 80307; 80349; 80361; 83690; 83735; 84100; 84443; 85025; 86580; 86592; 86705; 86803; 87340; 87806; 93005; A4663; G6040-TC; Q0162; Q0163

== ENCOUNTER 2017-12-13 12:46 | Inpatient (IN) | payer OTHER ==
[~2017-12-13] VITALS: Ht 167.6 cm; Wt 72.6 kg
[~2017-12-13 12:46] MED LIST: Baclofen PO; CLON0.1T14 PO; DICY20TA28 PO; Gabapentin PO; HYDR-3895 PO; Ibuprofen PO; QUET100T PO
[2017-12-13 15:40] VITALS: BP 116/81
--- NOTE | 2017-12-13 15:40 | NUR ---
Pre Admission Note Assessed client in intake office. Client appears disheveled, with odorous breath, slump posture, unkempt, odorous, poor eye contact. Client noted with slow slurred speech, swaying back and forth in his seat, appears to be intoxicated from a substance. Client states "I want to get my life together like last time, before I lose everything again." He reports previously ingesting alcohol, and heroin prior to arrival to the hospital. Pt. is A/O X 4 verbally responsive and able provide consent regarding the admission process. Education provided regarding the admission process. Client verbalize good understanding. V/S BP:118/61, P: 105, O2sat: 95% RR: 18, Pain Level: 0. Pt. denies any allergies and request to be full code. COW's and CIWA's unable to be obtain due to intoxication. Will continue with the admission when the client arrives on unit. Dr. Giron made aware of pt.'s arrival.
--- NOTE | 2017-12-13 16:06 | NUR ---
Admission Note Admitted a 27 y/o male for the medically supervised withdrawal from ETOH and Opiates under the care of Dr. Giron. Pt. is A/O x 4. No A/V hallucinations noted. Pt. denies SI and HI. Respiration normal unlabored. Lung sounds cleared bilaterally. Skin dry and intact with no breakdown noted. Upon skin check noted with multiple scars on shoulders and thighs. Body search done, no contraband found. Abdomen soft and non distended. Bowel sounds present in all four quadrants. No N/V diarrhea and constipation. Pt. reports last BM 12/12/17 (yesterday), Bladder non-distended, pt. voids independently able to proved urine for UDS. Ambulatory adlib with steady gait. Pt. reports a past medical history of anxiety and insomnia. No known medical allergies, full code and follows a regular diet. Pt. denies seizure history. Pt. denies having a PCP at this time. Pt. reports that his current substance use has impacted his life negatively, and is here to get his life back together. Pt. is currently homeless, reports having family support. At the time of admission pt. is acutely intoxicated. Pt.'s longest period of sobriety was 8 months in 2017. Pt. states that his withdrawal symptoms are being "shaky and achy." Substance use as follows: 1. ETOH (vodka) since 18 y/o pt. reports drinking 3 pints for the past four months daily. Last use was one hour prior to admission, 750cc. 2. Heroin since 18 y/o pt. injects 1.5 grams IV x 4 moths. Last use 1 hour prior to admission, 1.5g. 3. Marijuana Since 18 y/o pt. reports smoking 1g daily x 4 months. Last use 1 hour prior to admission 1g. Treatment History: 1. [facility] 2015 2. [facility] [place] 11/18/2016 - 11/25/2016 3. Able to change from november 26 x 2 months Pt. education provided regarding units policies and procedures. Orientation to the facility provided. Provided a safe environment with bilateral side rails up in bed. Bed locked and in low position. Call light within reach. Dr. Giron aware of pt.'s arrival on the unit and admission orders entered. Will continue to monitor pt.'s behavior for safety.
[2017-12-13] MEDS ORDERED: IBUPROFEN 600 MG TABLET PO PRN (16:15)
[2017-12-13] MEDS ORDERED: MAGNESIUM HYDROXIDE 30 ML LIQUID UDC PO PRN (16:15)
[2017-12-13] MEDS ORDERED: MAG HYDROX/AL HYDROX/SIMETH 30 ML LIQUID UDC PO PRN (16:15)
[2017-12-13] MEDS ORDERED: LORAZEPAM 2 MG/1 ML VIAL IM PRN (16:15)
[2017-12-13] MEDS ORDERED: DICYCLOMINE HCL 20 MG TABLET PO PRN (16:15)
[2017-12-13] MEDS ORDERED: CLONIDINE HCL 0.1 MG TABLET PO PRN (16:15)
[2017-12-13] MEDS ORDERED: METHOCARBAMOL 750 MG TABLET PO PRN (16:15)
[2017-12-13] MEDS ORDERED: LOPERAMIDE HCL 2 MG CAPSULE PO PRN ×2 (16:15)
[2017-12-13] MEDS ORDERED: ONDANSETRON 4 MG/2 ML VIAL IM PRN (16:15)
[2017-12-13] MEDS ORDERED: ONDANSETRON ODT 4 MG TAB.RAPDIS SL PRN (16:15)
[2017-12-13] MEDS ORDERED: ACETAMINOPHEN 325 MG TABLET PO PRN (16:15)
[2017-12-13] MEDS ORDERED: MIRALAX 17 GM POWD.PACK PO PRN (16:15)
[2017-12-13] MEDS ORDERED: HYDR50CA5 PO (16:42)
[2017-12-13] MEDS ORDERED: THIAMINE HCL 200 MG/2 ML VIAL IM ONE (16:53)
[2017-12-13] MEDS ORDERED: LORAZEPAM 1 MG TABLET PO PRN ×2 (17:00)
[2017-12-13 18:28] LABS: BASOPHILS % (AUTO) 0.5 % (0.0-2.0); EOSINOPHILS # (AUTO) 0.1 K/uL (0.0-0.7); EOSINOPHILS % (AUTO) 2.6 % (0.0-7.0); HEMATOCRIT 41.4 % (36.7-47.1); HEMOGLOBIN 14.3 g/dL (12.5-16.3); LYMPHOCYTES # (AUTO) 2.8 K/uL (20.0-40.0); LYMPHOCYTES % (AUTO) 51.2 % (20.5-51.5); MEAN CORPUSCULAR HEMOGLOBIN 31.4 uug (23.8-33.4); MEAN CORPUSCULAR HGB CONC 35 g/dL (32.5-36.3); MEAN CORPUSCULAR VOLUME 90.9 fL (73.0-96.2); MONOCYTES # (AUTO) 0.3 K/uL (2.0-10.0); MONOCYTES % (AUTO) 6.1 % (0.0-11.0); NEUTROPHILS # (AUTO) 2.2 K/uL (1.8-8.9); NEUTROPHILS % (AUTO) 39.6 % (38.5-71.5); PLATELET COUNT (AUTO) 218 K/uL (152-348); RED BLOOD CELL COUNT(AUTO) 4.55 MIL/uL (4.06-5.63); WHITE BLOOD COUNT (AUTO) 5.5 K/uL (3.6-10.2)
[2017-12-13 18:34] LABS: BILIRUBIN,TOTAL 0.4 mg/dL (0.2-1.0); CREATININE 0.8 mg/dL (0.6-1.3); MAGNESIUM 2.3 mg/dL (1.8-2.4); POTASSIUM 3.4 mmol/L (3.5-5.1); TOTAL PROTEIN, SERUM 7.5 g/dL (6.4-8.2)
--- NOTE | 2017-12-13 19:06 | NUR ---
End of Shift Note Pt. is a 27y/o male admitted for the medically supervised withdrawal of Opiates and ETOH. Pt. has orders for a 5 day ativan and subutex taper that has not been initiated yet. Both CIWA and COWs have been deferred due to pt. being too intoxicated. Pt. is disheveled, malodorous, with an angry affect and poor eye contact. Pt. was compliant with admission process. Pt. reported ingesting substances 1 hour before admission. Pt. is A/O x4 and denies any visual and auditory disturbances. In the time spent on the unit pt. had dinner and was compliant with medication administration. Will endorse pt. care to oncoming shift.
--- NOTE | 2017-12-13 19:30 | NUR ---
Start of Shift Pt is a 27 y/o male admitted today, 12/13/17, for medically managed withdrawal/detox from ETOH, and Heroin. Pt is found sleeping in bed, arousable to voice. Pt groggy, voice is soft, eye contact avoidant with c/o H/A. Endorsement reports 750ml ETOH and 1.5g Heroin IV ingested prior to admission. Pt disheveled and unshaven, is able to provide U/A on request, and sent to lab. Hand tremulous, pupils larger than normal. Evening meds reviewed with pt, Ativan scheduled and will administer. Will monitor patient for shift, promptly attending to all pt needs.
[2017-12-13 20:00] VITALS: BP 106/52
[2017-12-13 20:18] LABS: *AMPHETAMINE, URINE NEGATIVE (NEGATIVE); *BARBITURATE, URINE NEGATIVE (NEGATIVE); *CANNABINOID, URINE NEGATIVE (NEGATIVE); *COCCAINE, URINE NEGATIVE (NEGATIVE); *OPIATE, URINE POSITIVE (NEGATIVE); *PHENCYCLIDINE SCREEN,URINE NEGATIVE (NEGATIVE)
[2017-12-13] MEDS: CEPHALEXIN MONOHYDRATE 500 MG CAPSULE PO SCH (20:27)
[2017-12-13] MEDS: LACTOBACILLUS RHAMNOSUS GG 1 EACH CAPSULE PO SCH (20:28)
[2017-12-13] MEDS ORDERED: LORAZEPAM 1 MG TABLET PO SCH (21:00)
[2017-12-13] MEDS ORDERED: BUPRENORPHINE HCL 2 MG TAB.SUBL SL PRN (21:00)
--- NOTE | 2017-12-14 | NUR ---
VS's COWS/CIWA Deferred Midnight VS's, COWS and CIWA deferred r/t pt sleeping/refused. RR 14, even and nonlabored. Will continue to monitor, promptly attending to all patient needs.
--- NOTE | 2017-12-14 04:00 | NUR ---
VS's COWS/CIWA Deferred 0400 VS's, COWS and CIWA deferred r/t pt sleeping/refused. RR 14, even and nonlabored. Will continue to monitor until endorsement, promptly attending to all patient needs.
--- NOTE | 2017-12-14 07:29 | NUR ---
Start of shift note; Received report from night nurse. Patient is a 27 year old male admitted on 12/13/17 for ETOH/Opiate withdrawals. Patient was started on a 5 day Ativan taper and to start a 5 day Subutex taper today. Patient is AOX4 reports diaphoresis, stomach cramps, muscle aches, anxiety, agitation and restless legs. Educated patient regarding the importance of compliance to treatment and medication regime. Encouraged patient to participate in treatment plan and medication regime. All safety measures secured. Will continue to monitor patient.
--- NOTE | 2017-12-14 07:39 | NUR ---
End of Shift Pt is a 27 y/o male admitted 12/13/17 for medically managed withdrawal/detox from ETOH, and Heroin. There were no PRNs for shift, COWS and CIWA were __ and __ at 20:00. Pt slept for _ hours, had ___ input, and _ void with 0 BMs Will continue to monitor pt until endorsement, promptly attending to all pt needs.
[2017-12-14 08:00] VITALS: BP 113/74
[2017-12-14] MEDS: LACTOBACILLUS RHAMNOSUS GG 1 EACH CAPSULE PO SCH ×2 (08:50→21:01)
[2017-12-14] MEDS: LORAZEPAM 1 MG TABLET PO SCH ×3 (08:50→21:01)
[2017-12-14] MEDS: MULTIVITAMINS,THERAPEUTIC TABLET PO SCH (08:50)
[2017-12-14] MEDS: CEPHALEXIN MONOHYDRATE 500 MG CAPSULE PO SCH ×3 (08:50→21:01)
[2017-12-14] MEDS: THIAMINE HCL 100 MG TABLET PO SCH (08:50)
[2017-12-14] MEDS: FOLIC ACID 1 MG TABLET PO SCH (08:50)
[2017-12-14] MEDS: BUPRENORPHINE HCL 2 MG TAB.SUBL SL SCH ×3 (08:57→21:01)
[2017-12-14] MEDS ORDERED: POTASSIUM CHLORIDE 10 MEQ TAB.PRT.SR PO ONE (09:00)
[2017-12-14] MEDS ORDERED: TUBERCULIN,PURIF.PROT.DERIV. 5 TU/0.1 ML TEST ID ONE (09:00)
--- NOTE | 2017-12-14 09:30 | NUR ---
Potassium supplement; Patient's potassium is low 3.4, MD order Potassium supplement, order given to patient as per MD order. Patient was also on Keflex ATB for right upper extremity cellulitis.
[2017-12-14 12:00] VITALS: BP 135/85
[2017-12-14 16:00] VITALS: BP 118/78
--- NOTE | 2017-12-14 18:23 | NUR ---
End of shift note; Patient is AOX4, complaining of anxiety, diaphoresis, muscle aches, stomach cramps, agitation. Patient's last COWS score is 12 and last CIWA score is 8 at 1600. Patient remained compliant with treatment plan and medication regime. Patient participated in group therapy and activities. Medications were effective in reducing withdrawal symptoms. All safety measures secured. Met all needs.
--- NOTE | 2017-12-14 19:30 | NUR ---
START OF SHIFT Pt is a 27 y/o male admitted on 12/13/17 for ETOH and heroin withdrawal. Pt is on a 5 day Ativan taper that started on 12/13/17 and a 5 day Subutex taper that started on 12/14/17, tolerating well. Last COWS 12 and CIWA 8 and one time order for K-Dur administered for K+ 3.4 during day shift. Pt is on Keflex for cellulitis in [facility]. Upon assessment pt presents with anxiety, agitation, sweats, unkempt room, flat affect, flushed skin, difficulty falling and staying asleep, anhedonia, dysphoria and is isolative. Medications due. Safety measures in place. Call light within reach. Will continue to monitor.
[2017-12-14 20:00] VITALS: BP 122/73
[2017-12-14] MEDS: diphenhydrAMINE 50 MG CAPSULE PO PRN (21:01)
--- NOTE | 2017-12-14 21:01 | NUR ---
PRN BENADRYL ADMINISTRATION Pt requests sleep aid. Safety measures in place. Call light within reach. Will continue to monitor.
--- NOTE | 2017-12-14 22:01 | NUR ---
PRN BENADRYL REASSESSMENT Pt laying in bed with eyes closed, medication noted effective. Safety measures in place. Call light within reach. Will continue to monitor.
[2017-12-15] VITALS: BP 114/64
[2017-12-15 04:00] VITALS: BP 111/58
--- NOTE | 2017-12-15 04:00 | NUR ---
COWS/CIWA DEFERRED Pt laying in bed with eyes closed, COWS/CIWA deferred, to be assessed when pt is awake per orders. Respirations even and unlabored. Safety measures in place. Call light within reach. Will continue to monitor.
--- NOTE | 2017-12-15 07:06 | NUR ---
END OF SHIFT Pt is a 27 y/o male admitted on 12/13/17 for ETOH and heroin withdrawal. Pt is on a 5 day Ativan taper that started on 12/13/17 and a 5 day Subutex taper that started on 12/14/17, tolerating well. Pt presented with anxiety, agitation, sweats, unkempt room, flat affect, flushed skin, difficulty falling and staying asleep, anhedonia, dysphoria and was isolative. Scheduled medications and PRN Benadryl administered, effective in S/S of withdrawal AEB COWS 8 and CIWA 10 lowered to COWS 7 and CIWA 9 during shift. Pt slept 7 hours. Intake 1091 ml, void x 1, stool x 0. Safety measures in place. Call light within reach. Pts needs have been met. Endorsed to day shift nurse.
[2017-12-15 07:10] LABS: HEPATITIS B SURFACE AG Negative (Negative)
--- NOTE | 2017-12-15 07:20 | NUR ---
Start of Shift Notes: Received patient in his room. He appears disheveled. Seen laying down in bed. Eyes closed. Easily arousable. Respirations even and unlabored. Denies S/I or H/I. No AV hallucinations noted. He appears unkempt. Room is messy with empty food containers and empty juice bottles scattered all over the room. Encouraged maintenance of personal hygiene and space. Patient is a 27 year old male admitted for ETOH and opiate withdrawal who was placed on a 5-day Subutex and 5-day Ativan taper as ordered. He has past medical hx of anxiety and insomnia. Educated patient on his current plan of care for the day and his medication regimen. Encouraged oral fluid intake and encouraged group participation to learn new skills to prevent relapse. No PRNs given during the night. Last CIWA 9. Slept for 11 hours. Will continue to monitor. Addendum: 12/15/17 at 0723 by LAMIN GUIDO LVN Clarification to notes: Patient was given PRN Benadryl during the night. Last COWS 7/CIWA 9. Slept for 8 hours.
[2017-12-15 08:00] VITALS: BP 116/76
[2017-12-15] MEDS ORDERED: BUPRENORPHINE HCL 2 MG TAB.SUBL SL SCH (09:00)
[2017-12-15] MEDS: FOLIC ACID 1 MG TABLET PO SCH (09:17)
[2017-12-15] MEDS: LORAZEPAM 1 MG TABLET PO SCH ×2 (09:17→12:02)
[2017-12-15] MEDS: LACTOBACILLUS RHAMNOSUS GG 1 EACH CAPSULE PO SCH ×2 (09:17→21:48)
[2017-12-15] MEDS: MULTIVITAMINS,THERAPEUTIC TABLET PO SCH (09:17)
[2017-12-15] MEDS: THIAMINE HCL 100 MG TABLET PO SCH (09:17)
[2017-12-15] MEDS: CEPHALEXIN MONOHYDRATE 500 MG CAPSULE PO SCH ×3 (09:17→21:48)
[2017-12-15 12:00] VITALS: BP 126/90
[2017-12-15] MEDS: BUPRENORPHINE HCL 2 MG TAB.SUBL SL SCH ×2 (14:00→21:49)
[2017-12-15 16:00] VITALS: BP 131/93
[2017-12-15] MEDS ORDERED: LORAZEPAM 1 MG TABLET PO SCH ×2 (17:00→21:00)
--- NOTE | 2017-12-15 19:07 | NUR ---
End of Shift Notes: Patient continues to be on 5-day Subutex and 5-day Ativan taper as ordered. No adverse reactions noted. VS monitored closely. No significant abnormalities noted. Withdrawal symptoms were closely monitored. Initial COWS 10/CIWA 14, patient presented with facial flushing, chills, hot flashes, tremors, anxiety and agitation, yawning and myalgia. Last COWS 7/CIWA 7. Per patient, Ativan and Subutex has been effective in reducing his withdrawal symptoms. Encouraged to participate in group and activities. Noted with episodes of self isolation. Socialization with his peers encouraged. Seen and examined by Dr. Giron with [facility]. Appetite fair. All needs met and attended. Will continue to monitor closely.
--- NOTE | 2017-12-15 19:30 | NUR ---
START OF SHIFT Pt is a 27 y/o male admitted on 12/13/17 for ETOH and heroin withdrawal. Pt is on a 5 day Ativan taper that started on 12/13/17 and a 5 day Subutex taper that started on 12/14/17, tolerating well. Last COWS 7 and CIWA 7 and no PRNs administered during day shift. Pt is on Keflex for cellulitis in [facility]. Upon assessment pt presents with anxiety, restlessness, sweats, unkempt room, flat affect, flushed skin, difficulty falling and staying asleep, anhedonia, dysphoria and is withdrawn and guarded. Medications due. Safety measures in place. Call light within reach. Will continue to monitor.
[2017-12-15 20:00] VITALS: BP 126/87
--- NOTE | 2017-12-16 | NUR ---
COWS/CIWA DEFERRED AND VITALS REFUSED Pt laying in bed with eyes closed, COWS/CIWA deferred, to be assessed when pt is awake per orders. Vitals refused. Respirations even and unlabored. Safety measures in place. Call light within reach. Will continue to monitor.
--- NOTE | 2017-12-16 07:01 | NUR ---
END OF SHIFT Pt is a 27 y/o male admitted on 12/13/17 for ETOH and heroin withdrawal. Pt is on a 5 day Ativan taper that started on 12/13/17 and a 5 day Subutex taper that started on 12/14/17, tolerating well. Pt presented with anxiety, restlessness, sweats, unkempt room, difficulty concentrating, difficulty thinking clearly, flat affect, flushed skin, difficulty falling and staying asleep, anhedonia, dysphoria and is withdrawn and guarded. Scheduled medications and no PRNs administered, effective in S/S of withdrawal as verbalized by pt. Last COWS 7 and CIWA 9. Pt slept 7 hours. Intake 855 ml, void x 1, stool x 0. Safety measures in place. Call light within reach. Pts needs have been met. Endorsed to day shift nurse.
--- NOTE | 2017-12-16 07:15 | NUR ---
Start of Shift Notes: Received patient in his room. He appears disheveled. Seen laying down in bed. Eyes closed. Easily arousable. Respirations even and unlabored. Denies S/I or H/I. No AV hallucinations noted. He appears disheveled and unshaven. Room is messy with empty food containers and empty juice bottles scattered all over the room. Encouraged maintenance of personal hygiene and space. Patient is a 27 year old male admitted for ETOH and opiate withdrawal who was placed on a 5-day Subutex and 5-day Ativan taper as ordered. He has past medical hx of anxiety and insomnia. Educated patient on his current plan of care for the day and his medication regimen. Encouraged oral fluid intake and encouraged group participation to learn new skills to prevent relapse. No PRNs given during the night. Last COWS 7/CIWA 9. Slept for 7 hours. Will continue to monitor.
[2017-12-16 08:00] VITALS: BP 106/66
[2017-12-16] MEDS: CEPHALEXIN MONOHYDRATE 500 MG CAPSULE PO SCH ×3 (08:40→20:43)
[2017-12-16] MEDS: MULTIVITAMINS,THERAPEUTIC TABLET PO SCH (08:40)
[2017-12-16] MEDS: THIAMINE HCL 100 MG TABLET PO SCH (08:40)
[2017-12-16] MEDS: BUPRENORPHINE HCL 2 MG TAB.SUBL SL SCH ×3 (08:40→20:42)
[2017-12-16] MEDS: FOLIC ACID 1 MG TABLET PO SCH (08:40)
[2017-12-16] MEDS: LORAZEPAM 1 MG TABLET PO SCH ×3 (08:40→20:43)
[2017-12-16] MEDS: LACTOBACILLUS RHAMNOSUS GG 1 EACH CAPSULE PO SCH ×2 (08:40→20:43)
[2017-12-16 12:00] VITALS: BP 135/90
[2017-12-16 16:00] VITALS: BP 115/78
--- NOTE | 2017-12-16 19:08 | NUR ---
START OF SHIFT NOTE: Endorsed 27 year old male admitted for ETOH(Vodka) and Opioid (Heroin) withdrawal, continues ordered 5 day Ativan and 5 day Subutex taper, which tolerated well. Patient remains compliant with treatment, medications, and diet regime. Patient reports NKA, is on Full Code, Regular Diet, is on Seizures and Fall Precautions. Patient denies withdrawal-induced seizures. Patient is alert and oriented x4, denies hallucinations and SI/HI. Patient appear worry with poor eye contact, and flat affect. Encouraged to express his feelings. Patient noted disheveled, unshaven, unkempt with uncombed hair. His clothes are dirty and patient refused to change them. He was educated in safety and hygiene care. Encouraged to independently perform hygiene care. The most recent COWS=6, CIWA =8 at 1600, per day shift nurse report: During day shift, patient presented with anxiety, agitation, nervousness, irritability, sweating, restlessness, and fatigue. No PRN Medications was given during the day shift. Encouraged to fluids intake as tolerated. Encouraged to attend group activities. All needs met. Safety measures in place: Call light within reach, bed is locked in lowest position, padded bed rails up bilaterally. Patient endorsed by outgoing day shift nurse. Will continue to monitor closely.
--- NOTE | 2017-12-16 19:08 | NUR ---
End of Shift Notes: Patient continues to be on 5-day Subutex and 5-day Ativan taper as ordered. No adverse reactions noted. VS monitored closely. No significant abnormalities noted. Withdrawal symptoms were closely monitored. Initial COWS 9/CIWA 10, patient presented with chills, hot flashes, tremors, anxiety and agitation, yawning and myalgia. Last COWS 6/CIWA 8. Per patient, Ativan and Subutex has been effective in reducing his withdrawal symptoms. Encouraged to participate in group and activities. Socialization with his peers encouraged. Appetite fair. All needs met and attended. Will continue to monitor closely.
[2017-12-16 20:00] VITALS: BP 129/84
[2017-12-16] MEDS: diphenhydrAMINE 50 MG CAPSULE PO PRN (20:43)
--- NOTE | 2017-12-16 20:43 | NUR ---
PRN BENADRYL 50 MG 1 CAPSULE PO ADMINISTRATION PRN Benadryl 50 mg PO administrated as ordered for insomnia with full glass of water. Patient tolerated well. Safe and calm environment with minimized noises was provided. All needs met. Safety measures in the place: Call light within reach, bed in the lowest position locked, padded rails up x2.
--- NOTE | 2017-12-16 21:43 | NUR ---
RE-ASSESSMENT Patient is sleeping. RR 16. Respirations even and unlabored. PRN Benadryl 50 mg PO administrated at 2043 as ordered was effective. Safe and calm environment with minimized noises was provided. All needs met. Safety measures in the place: Call light within reach, bed locked in the lowest position, padded rails up x2. Will continue to monitor closely.
--- NOTE | 2017-12-17 | NUR ---
VS REFUSED, COWS/CIWA DEFERRED VS refused, COWS/CIWA deferred at 0000 due to patient sleeping; to be assessed and scored while patient is awake. Respirations are even and unlabored. RR:15. All needs met. Safety measures in place: Call light within reach, bed locked in low position, padded side rails up x2. Will continue to monitor closely.
--- NOTE | 2017-12-17 04:00 | NUR ---
VS REFUSED, COWS/CIWA DEFERRED VS refused, COWS/CIWA deferred at 0400 due to patient sleeping; to be assessed and scored while patient is awake. Respirations are even and unlabored. RR:14. Safe and calm environment with minimized noises was provided. All needs met. Safety measures in the place: Call light within reach, bed locked in the lowest position, padded rails up x2. Will continue to monitor closely.
--- NOTE | 2017-12-17 07:02 | NUR ---
END OF SHIFT NOTE Endorsed patient is a 27 year old male admitted for ETOH (Vodka) and Opioid (Heroin) withdrawal, continues ordered 5 day Ativan and 5 day Subutex taper, which tolerated well. Withdrawal symptoms closely monitored. Patient reports NKA, is on Regular Diet, Full Code, is on Fall and Seizures Precautions. PMH: Anxiety, Depression, Insomnia. Patient is alert and oriented x4. The most recent COWS=11, CIWA=11. PRN Benadryl 50 mg PO administrated for insomnia at 2042 was effective. Patient remains compliant with treatment, medications, and diet regime. Safe and calm environment with minimized noises was provided. Patient slept 7 hours, intake 500 ml, voided x2. All needs met. Safety measures in the place by hospital policy: Call light within reach, bed in the lowest position and locked, padded rails up x2. Patient endorsed to day shift nurse.
--- NOTE | 2017-12-17 07:57 | NUR ---
START OF SHIFT NOTE Pt. is a 27 year old male admitted for the medically supervised withdrawal of ETOH (Vodka) and Opioid (Heroin. Pt. continues on his ordered 5 day Ativan and 5 day Subutex taper, which he is tolerating well. Pt. is on his last day of the ativan taper and tomorrow will be his last day of the subutex taper. Withdrawal symptoms closely monitored. Patient reports NKA, is on Regular Diet, Full Code, is on Fall and Seizures Precautions. PMH: Anxiety, Depression, Insomnia. Patient is alert and oriented x4. The most recent COWS=11, CIWA=11. PRN Benadryl 50 mg PO administrated for insomnia at 2042 was effective. Patient remains compliant with treatment, medications, and diet regime. Pt. received in room. Pt. in bed with eyes closed and no signs of SOB noted. Pt.'s room is messy with personal belongings on the floor. Pt. arousable to touch and name. Patient slept 7 hours, intake 500 ml, voided x2. All needs met. Safety measures in the place by hospital policy: Call light within reach, bed in the lowest position and locked, padded rails up x2. Will continue to monitor pt.'s behavior for safety.
[2017-12-17] MEDS: MULTIVITAMINS,THERAPEUTIC TABLET PO SCH (09:02)
[2017-12-17] MEDS: BUPRENORPHINE HCL 2 MG TAB.SUBL SL SCH ×2 (09:02→21:17)
[2017-12-17] MEDS: LACTOBACILLUS RHAMNOSUS GG 1 EACH CAPSULE PO SCH ×2 (09:02→21:16)
[2017-12-17] MEDS: THIAMINE HCL 100 MG TABLET PO SCH (09:02)
[2017-12-17] MEDS: FOLIC ACID 1 MG TABLET PO SCH (09:02)
[2017-12-17] MEDS: LORAZEPAM 1 MG TABLET PO SCH ×2 (09:03→21:17)
[2017-12-17] MEDS: CEPHALEXIN MONOHYDRATE 500 MG CAPSULE PO SCH ×3 (09:03→21:16)
[2017-12-17 09:07] VITALS: BP 105/60
[2017-12-17 12:38] VITALS: BP 121/71
[2017-12-17 16:54] VITALS: BP 130/67
[2017-12-17] MEDS ORDERED: DIPH50CA37 PO (17:54)
[2017-12-17] MEDS ORDERED: DICY20TA28 PO (17:54)
[2017-12-17] MEDS ORDERED: METH-406 PO (17:54)
[2017-12-17] MEDS ORDERED: CLON0.1T14 PO (17:54)
[2017-12-17] MEDS ORDERED: HYDR-3895 PO (17:54)
[2017-12-17] MEDS ORDERED: IBUP-1955 PO (17:54)
--- NOTE | 2017-12-17 19:17 | NUR ---
END OF SHIFT NOTE Pt. is a 27 year old male admitted for the medically supervised withdrawal of ETOH (Vodka) and Opioid (Heroin. Pt. continues on his ordered 5 day Ativan and 5 day Subutex taper, which he is tolerating well. Pt. is on his last day of the ativan taper and tomorrow will be his last day of the subutex taper. Withdrawal symptoms closely monitored. Pt.'s V/S remained WNL throughout shift. PMH: Anxiety, Depression, Insomnia. Patient is alert and oriented x4. The most recent COWS=8, CIWA=8 at 1600. No PRN medications requested or given during shift. Pt. attended selective groups and activities. Patient remains compliant with treatment, medications, and diet regime. Pt.'s room is messy with personal belongings on the floor. Intake 1500 ml, voided x3, and BM X 1. All needs met. Safety measures in the place by hospital policy: Call light within reach, bed in the lowest position and locked, padded rails up x2. Will endorse pt.'s care to oncoming shift.
--- NOTE | 2017-12-17 19:30 | NUR ---
Start of Shift Pt is a 27 y/o male admitted 12/13/17 for medically managed withdrawal/detox from ETOH, and Heroin. Pt found in room laying down in bed watching tv. Pt able to answer questions and respond to commands appropriately, A&O x 4. 5-day Ativan taper ended today, 12/17, 5-day Subutex taper ending on 12/18. Pt is a full code, with NKA's reported and regular diet. Evening meds reviewed with pt with Benedryl 50mg PO requested for insomnia. Will continue to monitor pt for shift, promptly attending to all pt needs.
[2017-12-17 20:00] VITALS: BP 121/78
[2017-12-17] MEDS: diphenhydrAMINE 50 MG CAPSULE PO PRN (21:16)
--- NOTE | 2017-12-17 21:16 | NUR ---
PRN Med Benedryl 50mg PO requested for insomnia. Will continue to monitor, reassessing pt in 1 hour, and promptly attending to all pt needs
--- NOTE | 2017-12-17 22:16 | NUR ---
PRN Reassessment Benedryl 50mg PO given 1 hour prior for insomnia. At present pt reports feeling drowsy. Med effective. Will continue to monitor pt for shift, promptly attending to all pt needs
--- NOTE | 2017-12-18 | NUR ---
VS's COWS & CIWA Deferred Midnight VS's, COWS and CIWA deferred r/t pt sleeping/refused. RR 14, even and nonlabored. Will continue to monitor pt, promptly attending to all needs.
--- NOTE | 2017-12-18 04:00 | NUR ---
VS's COWS & CIWA Deferred 0400 VS's, COWS and CIWA deferred r/t pt sleeping/refused. RR 14, even and nonlabored. Will continue to monitor pt, promptly attending to all needs.
--- NOTE | 2017-12-18 06:49 | NUR ---
End of Shift Pt is a 27 y/o male admitted 12/13/17 for medically managed withdrawal/detox from ETOH, and Heroin. PRN's for shift included Benedryl 50mg PO for insomnia at 21:16. Pt slept for 5 hours, with 500 mls intake, 3 voids and 0 BM's. Last COWS was 8 and CIWA was 8 at 20:00. Will continue to monitor pt until endorsement, promptly attending to all pt needs.
[2017-12-18 08:00] VITALS: BP 119/65
[2017-12-18] MEDS: LACTOBACILLUS RHAMNOSUS GG 1 EACH CAPSULE PO SCH (08:37)
[2017-12-18] MEDS: FOLIC ACID 1 MG TABLET PO SCH (08:37)
[2017-12-18] MEDS: CEPHALEXIN MONOHYDRATE 500 MG CAPSULE PO SCH ×2 (08:37→14:11)
[2017-12-18] MEDS: MULTIVITAMINS,THERAPEUTIC TABLET PO SCH (08:37)
[2017-12-18] MEDS: THIAMINE HCL 100 MG TABLET PO SCH (08:37)
[2017-12-18] MEDS ORDERED: BUPRENORPHINE HCL 2 MG TAB.SUBL SL SCH (09:00)
[2017-12-18] MEDS ORDERED: LORAZEPAM 1 MG TABLET PO SCH (09:00)
--- NOTE | 2017-12-18 09:10 | NUR ---
START OF SHIFT NOTE Received report from night nurse, 27 year old male admitted for ETOH/Heroin withdrawal. Patient continues with Ativan/Subutex taper tolerating well. Per endorsement patient received PRN Benadryl, CIWA-8,COW-8, slept for 5 hours. Received patient anxious, agitated, restless. Patient is due for scheduled medications. All safety measures in place. Will cont to monitor.
[2017-12-18 12:00] VITALS: BP 131/79
[2017-12-18 16:00] VITALS: BP 124/77
--- NOTE | 2017-12-18 19:12 | NUR ---
END OF SHIFT NOTE Gave report to night nurse, patient is admitted for ETOH/Heroin/Marijuana withdrawal and completed his Subutex and Ativan taper tolerated well. During shift patient did not receive any PRN'S. Vital signs WNL. Patient scheduled for discharge in AM. Patient attended his groups and activities. Patient consumed 100% of his meals. Patient is compliant with treatment plan and medications. All safety measures in place. Patient endorsed to night nurse in stable condition.
--- NOTE | 2017-12-18 19:30 | NUR ---
Start of Shift Pt is a 27 y/o male admitted 12/13/17 for medically managed withdrawal/detox from ETOH, Heroin. Pt is found in Rec Room, escorted back to room for assessment and discussion of evening meds. Pt is to be d/c'd in am to Rehab facility which pt is acquainted with, pleased, hopeful at prospect. VS's obtained, stable. COWS 4, CIWA 3. No scheduled meds for 2100 noted, pt request for Benedryl 50mg PO for insomnia. Will continue to monitor pt for shift until am endorsement , promptly attending to all pt needs.
[2017-12-18 20:00] VITALS: BP 130/75
[2017-12-18] MEDS: diphenhydrAMINE 50 MG CAPSULE PO PRN (21:21)
--- NOTE | 2017-12-18 21:21 | NUR ---
PRN Med Benedryl 50mg PO given per request for insomnia. Will continue to monitor pt, reassessing in 1 hour, and promptly attending to all pt needs.
--- NOTE | 2017-12-18 22:21 | NUR ---
PRN Reassessment Benedryl 50mg PO given 1 hour prior for insomnia. At present pt reports feeling "drowsy". Med effective. Will continue to monitor pt, promptly attending to all pt needs
--- NOTE | 2017-12-19 | NUR ---
VS's COWS/CIWA Deferred Midnight VS's, COWS/CIWA deferred r/t pt sleeping/refused. RR 14, even and nonlabored. Will continue to monitor, promptly attending to all pt needs.
--- NOTE | 2017-12-19 04:00 | NUR ---
VS's COWS/CIWA Deferred 0400 VS's, COWS/CIWA deferred r/t pt sleeping/refused. RR 14, even and nonlabored. Will continue to monitor, promptly attending to all pt needs.
--- NOTE | 2017-12-19 06:47 | NUR ---
End of Shift Pt is a 27 y/o male admitted 12/13/17 for medically managed withdrawal/detox from ETOH, Heroin. There were no PRN's for the shift. Last COWS/CIWA was 3 and 3 at 1999. Pt slept for 6 hours, with 1489 mls input, 3 voids and 1 BM's. Will continue to monitor pt for shift until am endorsement , promptly attending to all pt needs.
--- NOTE | 2017-12-19 07:30 | NUR ---
START OF SHIFT NOTE Received report from night nurse, 27 year old male admitted for ETOH/Heroin withdrawal. Patient completed his Ativan/Subutex taper tolerated well. Per endorsement patient received PRN Benadryl, CIWA-3,COW-3, slept for 6 hours. Received patient asleep, responsive to verbal and tactile stimuli, breathing normal no SOB noted. Skin intact warm and dry to touch. Patient is set for discharge today. All safety measures in place. Will cont to monitor.
[2017-12-19 08:00] VITALS: BP 101/62
[2017-12-19] MEDS: THIAMINE HCL 100 MG TABLET PO SCH (08:10)
[2017-12-19] MEDS: MULTIVITAMINS,THERAPEUTIC TABLET PO SCH (08:10)
[2017-12-19] MEDS: FOLIC ACID 1 MG TABLET PO SCH (08:11)
--- NOTE | 2017-12-19 09:28 | NUR ---
DISCHARGE NOTE Patient has been discharged from [facility] Patient is in Stable condition, VS WNL. Denies suicidal and homicidal ideations at this time. All documentation has been completed, paperwork signed and dated. Pt left with all of his belongings, medications and prescriptions. Pt has been discharged from [facility] on 12/19/17 at 0928. has been Notified.
== END 2017-12-19 09:28 | disposition other institution (70) | DRG 895 ==
LOC: SRC 15:28
PROVIDERS: ADMIT Internal Medicine; ATTEND Internal Medicine
PROC: HZ2ZZZZ Detoxification Services for Substance Abuse Treatment (ICD-10-PCS; principal; 2017-12-13)
PROC: HZ41ZZZ Group Counseling for Substance Abuse Treatment, Behavioral (ICD-10-PCS; 2017-12-16)
DX: F11.23 Opioid dependence with withdrawal (principal); Z86.74 Personal history of sudden cardiac arrest; K70.10 Alcoholic hepatitis without ascites; L03.113 Cellulitis of right upper limb; F10.230 Alcohol dependence with withdrawal, uncomplicated; E87.6 Hypokalemia; Y90.8 Blood alcohol level of 240 mg/100 ml or more; F17.210 Nicotine dependence, cigarettes, uncomplicated; F41.9 Anxiety disorder, unspecified; X78.8XXS Intentional self-harm by other sharp object, sequela; S41.131S Puncture wound without foreign body of right upper arm, sequela; Z59.0 Homelessness; Z59.1 Inadequate housing; Z83.3 Family history of diabetes mellitus; Z81.3 Family history of other psychoactive substance abuse and dependence; G47.00 Insomnia, unspecified
CPT/HCPCS: 36415; 70030-TC; 80307; 80361; 83735; 85025; 86592; 86705; 86803; 87340; 87806; A4663; G0480; J3411; Q0162; Q0163

== ENCOUNTER 2018-02-14 18:48 | Inpatient (IN) | payer BC, OTHER ==
[~2018-02-14] VITALS: Ht 167.6 cm; Wt 72.6 kg
[~2018-02-14 18:48] MED LIST changes: -Baclofen PO; +DIPH50CA37 PO; -Gabapentin PO; +IBUP-1955 PO; -Ibuprofen PO; +METH-406 PO; -QUET100T PO
--- NOTE | 2018-02-14 21:00 | NUR ---
PRE ADMISSION NOTE Pt is a 27 y/o male seen at intake, A&O x 4 and presents with anxiety, flushed skin, chills, agitation, flat affect, restlessness, difficulty concentrating, poor eye contact, slumped posture and is fidgety. Pt is ambulatory with steady gait. Vital signs: BP 148/70, HR 107, T 98.2, RR 19, 02 97% and Pain 0/10. Pt denies allergies to food or medications. Denies hx of seizures. Pt did not bring home medications. Pt reports PMH of anxiety and depression. Educated pt about rules and policies of the unit including handling of contraband and taking vital signs Q4H. Will continue care of patient upon arrival on unit.
--- NOTE | 2018-02-14 21:19 | NUR ---
ADMISSION NOTE Pt arrived on the unit at 2118 on 02/14/18 for medically supervised withdrawal from ETOH, opiate and methamphetamine. Skin and body check completed, skin intact and no contraband found. Pt provided UDS, awaiting labs at this time. Pt is 5'6 and weighs 160 lbs. COWS 16 and CIWA 14. Pt presents with anxiety, flushed skin, chills, agitation, flat affect, restlessness, body aches, stomach cramps, nausea, poor appetite, difficulty concentrating, poor eye contact, slumped posture and is fidgety. Pt is ambulatory with steady gait. PEERLA. Respirations even and unlabored, lung sounds clear. Last BM today. Vital signs: BP 148/70, HR 107, T 98.2, RR 19, 02 97% and Pain 0/10. Substance Use History: 1. ETOH (Vodka) 750 ml daily, last intake of "1 pint of vodka and 1 bottle of wine" at 1200 on 02/14/18, at this rate for 3 weeks since relapse. Pt reports he typically only drinks vodka, but drank wine today as well. 2. Heroin IV 1 gram daily, last intake of 1 gram at 1200 on 02/14/18, at this rate for 3 weeks since relapse. 3. Methamphetamine IV 0.3 gram daily, last intake of 0.3 gram on 02/13/18, at this rate for 2 weeks. Pt reports the following S/S of withdrawal: "Diarrhea, body hurts, restless legs, can't eat well, tremors." Pt is full code, regular diet, NKA, and on fall/seizure precautions. No known seizure history. Pt reports PMH of anxiety, depression and hx of bullemia in the past. Pt reports that he only smokes when he is in detox or rehab and does not have a desire to quit. Pt reports being in half-way last week from DUI, qualifies for MRSA, MRSA swab collected and sent to lab. Pt denies having a PCP. Pt reports that his father has history of polysubstance use and sister has hx of methamphetamine use. Pt reports that his longest sobriety period was 9 months "in the beginning of last year sometime." Pt reports approximately 20 treatment histories. Last three that he can recall include the following: [facility] in [place], [place], [facility] in [facility] in 11/16, and [facility] in December 13, 2017 and November 18, 2016. Pt unable to recall length of stay or how quickly he relapsed after each facility. Pt lives in [facility], but is homeless at this time and sleeping on the streets. Pt is unemployed, single and has one daughter and one son. Pt reports he uses and has difficulty remaining sober d/t "The lifestyleThere is something about the type of people and the lifestyle about using that always draws me in." Pt reports that he wants to get sober d/t legal problems such as 2 DUIs. Pt states he would like to spend time with his two kids, but that his family won't let him near his kids unless he is sober. Pt reports that when he is sober he likes "being a productive member of society and working." Pt has struggled with numerous attempts for sobriety, but states he has always relapses shortly after each rehab. Pt reports that he has recently experienced job loss at [employer] and the passing of his grandmother this past year. Pt reports the following consequences from using: job loss, family relationship problems, financial loss and becoming homeless. Pt reports that this admission will be different, states "I need to get this legal stuff figured outI want to spend more time with my family and I'm just sick of being in and out of rehab." Oriented pt to room and unit, educated pt about rules and expectation of unit and how to use call light. Pt verbalized understanding. Addendum: 02/15/18 at 0501 by MARCO SALEH RN Additional: Pt reports hx of blackouts from ETOH and heroin OD x 4. Denies hx of withdrawal induced delirium.
[2018-02-14] MEDS ORDERED: HYDROXYZINE PAMOATE 25 MG CAPSULE PO PRN (22:45)
[2018-02-14] MEDS ORDERED: DICYCLOMINE HCL 20 MG TABLET PO PRN (22:45)
[2018-02-14] MEDS ORDERED: ONDANSETRON 4 MG/2 ML VIAL IM PRN (22:45)
[2018-02-14] MEDS ORDERED: LOPERAMIDE HCL 2 MG CAPSULE PO PRN ×2 (22:45)
[2018-02-14] MEDS ORDERED: BUPRENORPHINE HCL 2 MG TAB.SUBL SL PRN (22:45)
[2018-02-14] MEDS ORDERED: MAG HYDROX/AL HYDROX/SIMETH 30 ML LIQUID UDC PO PRN (22:45)
[2018-02-14] MEDS ORDERED: IBUPROFEN 600 MG TABLET PO PRN (22:45)
[2018-02-14] MEDS ORDERED: ONDANSETRON ODT 4 MG TAB.RAPDIS SL PRN (22:45)
[2018-02-14] MEDS ORDERED: METHOCARBAMOL 750 MG TABLET PO PRN (22:45)
[2018-02-14] MEDS ORDERED: LORAZEPAM 1 MG TABLET PO PRN ×2 (22:45)
[2018-02-14] MEDS ORDERED: MIRALAX 17 GM POWD.PACK PO PRN (22:45)
[2018-02-14] MEDS ORDERED: ACETAMINOPHEN 325 MG TABLET PO PRN (22:45)
[2018-02-14] MEDS ORDERED: CLONIDINE HCL 0.1 MG TABLET PO PRN (22:45)
[2018-02-14] MEDS ORDERED: LORAZEPAM 2 MG/1 ML VIAL IM PRN (22:45)
[2018-02-14] MEDS ORDERED: diphenhydrAMINE 50 MG CAPSULE PO PRN (22:45)
[2018-02-14 23:10] LABS: *AMPHETAMINE, URINE NEGATIVE (NEGATIVE); *BARBITURATE, URINE NEGATIVE (NEGATIVE); *CANNABINOID, URINE NEGATIVE (NEGATIVE); *COCCAINE, URINE NEGATIVE (NEGATIVE); *OPIATE, URINE NEGATIVE (NEGATIVE); *PHENCYCLIDINE SCREEN,URINE NEGATIVE (NEGATIVE)
--- NOTE | 2018-02-14 23:18 | NUR ---
PRN ATIVAN 1 MG, SUBUTEX 4 MG, ROBAXIN, BENTYL, AND ZOFRAN ODT ADMINISTRATION CIWA 14 and COWS 17. Pt presents with anxiety, restlessness, inability to sit still, flushed skin, chills, agitation, nausea, stomach cramps, elevated HR, body aches. Safety measures in place. Call light within reach. Will continue to monitor.
[2018-02-14] MEDS ORDERED: THIAMINE HCL 200 MG/2 ML VIAL IM ONE (23:30)
--- NOTE | 2018-02-14 23:48 | NUR ---
PRN MICHELEFRAN ODT REASSESSMENT Pt reports improvement in nausea to tolerable level. Safety measures in place. Call light within reach. Will continue to monitor.
[2018-02-15] VITALS: BP 123/71
--- NOTE | 2018-02-15 00:18 | NUR ---
PRN ATIVAN 1 MG, SUBUTEX 4 MG, ROBAXIN, BENTYL REASSESSMENT COWS 14 and CIWA 12. Pt presents with slight improvement in anxiety and heart rate, otherwise S/S of withdrawal are persistent. Pt appears more comfortable. Pt reports stomach cramps and body aches improved to tolerable level. Safety measures in place. Call light within reach. Will continue to monitor.
[2018-02-15 04:00] VITALS: BP 99/60
--- NOTE | 2018-02-15 04:00 | NUR ---
CIWA/COWS DEFERRED Pt laying in bed with eyes closed, CIWA/COWS deferred, to be assessed when pt is awake per orders. Respirations even and unlabored. Safety measures in place. Call light within reach. Will continue to monitor.
[2018-02-15 05:09] LABS: BASOPHILS % (AUTO) 0.5 % (0.0-2.0); EOSINOPHILS # (AUTO) 0.2 K/uL (0.0-0.7); EOSINOPHILS % (AUTO) 6.3 % (0.0-7.0); HEMATOCRIT 44.5 % (36.7-47.1); LYMPHOCYTES % (AUTO) 55.7 % (20.5-51.5); MEAN CORPUSCULAR HEMOGLOBIN 30.7 uug (23.8-33.4); MEAN CORPUSCULAR HGB CONC 34 g/dL (32.5-36.3); MEAN CORPUSCULAR VOLUME 91.1 fL (73.0-96.2); MONOCYTES # (AUTO) 0.3 K/uL (2.0-10.0); MONOCYTES % (AUTO) 9.3 % (0.0-11.0); NEUTROPHILS % (AUTO) 28.2 % (38.5-71.5); PLATELET COUNT (AUTO) 190 K/uL (152-348); RED BLOOD CELL COUNT(AUTO) 4.88 MIL/uL (4.06-5.63); WHITE BLOOD COUNT (AUTO) 3.6 K/uL (3.6-10.2)
[2018-02-15 05:20] LABS: CREATININE 0.8 mg/dL (0.6-1.3); MAGNESIUM 2.5 mg/dL (1.8-2.4); POTASSIUM 3.4 mmol/L (3.5-5.1); TOTAL PROTEIN, SERUM 7.4 g/dL (6.4-8.2)
[2018-02-15 05:29] LABS: THYROID STIMULATING HORMONE 2.264 mIU/mL (0.358-3.740)
--- NOTE | 2018-02-15 07:15 | NUR ---
END OF SHIFT Pt is a 27 y/o male admitted on 02/14/18 for ETOH, opiate, and meth withdrawal. Pt will start a 5 day Valium taper and a 5 day Subutex taper today. Pt presented with anxiety, elevated heart rate, flushed skin, chills, agitation, flat affect, restlessness, body aches, stomach cramps, nausea, poor appetite, difficulty concentrating, poor eye contact, slumped posture and was fidgety. Scheduled medication and PRN Ativan, Robaxin, Bentyl, Subutex, and Zofran administered, effective in S/S of withdrawal AEB by COWS 17 CIWA 14 lowered to COWS 14 and CIWA 12 during shift. Pt slept 7 hours. Intake 1432 ml, void x 1, stool x 0. Safety measures in place. Call light within reach. Pt's needs have been met. Endorsed to day shift nurse.
[2018-02-15 08:00] VITALS: BP 110/65
--- NOTE | 2018-02-15 08:00 | NUR ---
START OF SHIFT Pt is a 27 y/o M admitted on 02/14/18 for ETOH, opiate and meth withdrawal. Pt will start a 5 day Valium taper and a 5 day Subutex taper starting today. Pt has a disheveled appearance and flat affect, has poor eye contact, pt touches his face anxiously when answering questions. Pt presents sweating, chills, cold/hot flashes, anxiety, agitation, restlessness, generalized body aches, stomach cramps, nausea, poor appetite, difficulty concentrating, increased HR, clammy skin and has gross tremors. Last COWS 14 and CIWA 14. Pt has been given subutex 4mg , robaxin, bentyl, zofran, ativan 1mg PRNs last night. Side rails upx2, bed is in low position. Call light within reach. Will continue to monitor.
--- NOTE | 2018-02-15 08:15 | NUR ---
COWS AND CIWA ASSESSMENT 0800 COWS 14 AND CIWA 18. Pt has a disheveled appearance and flat affect, has poor eye contact, pt touches his face anxiously when answering questions. Pt presents sweating, chills, cold/hot flashes, anxiety, agitation, restlessness, generalized body aches, stomach cramps, nausea, poor appetite, difficulty concentrating, increased HR, clammy skin and has gross tremors. Addendum: 02/15/18 at 1116 by CHIDI ORTEGA RN S/s running nose and dilated pupils.
[2018-02-15] MEDS ORDERED: TUBERCULIN,PURIF.PROT.DERIV. 5 TU/0.1 ML TEST ID ONE (09:00)
[2018-02-15] MEDS ORDERED: POTASSIUM CHLORIDE 20 MEQ TAB.PRT.SR PO ONE (09:00)
[2018-02-15] MEDS ORDERED: PNEUMOCOCCAL 23-VAL P-SAC VAC 0.5 ML VIAL IM ONE (09:00)
[2018-02-15] MEDS: THIAMINE HCL 100 MG TABLET PO SCH (09:02)
[2018-02-15] MEDS: FOLIC ACID 1 MG TABLET PO SCH (09:02)
[2018-02-15] MEDS: DIAZEPAM 10 MG TABLET PO SCH ×4 (09:02→21:44)
[2018-02-15] MEDS: MULTIVITAMINS,THERAPEUTIC TABLET PO SCH (09:02)
[2018-02-15] MEDS: BUPRENORPHINE HCL 2 MG TAB.SUBL SL SCH ×4 (09:03→21:44)
[2018-02-15 12:00] VITALS: BP 132/90
--- NOTE | 2018-02-15 12:00 | NUR ---
COWS AND CIWA ASSESSMENT 1200 COWS 16 AND CIWA 19. Pt is laying in bed, fidgety, presents pupil dilation, runny nose, sweating, chills, cold/hot flashes, anxiety, agitation, restlessness, generalized body aches, stomach cramps, nausea, poor appetite, difficulty concentrating, dysphoria, anhedonia, clammy skin and has gross tremors.
[2018-02-15] MEDS ORDERED: diphenhydrAMINE 50 MG CAPSULE PO PRN (15:30)
[2018-02-15] MEDS ORDERED: METHOCARBAMOL 750 MG TABLET PO PRN (15:30)
[2018-02-15] MEDS ORDERED: IBUPROFEN 600 MG TABLET PO PRN (15:30)
[2018-02-15] MEDS ORDERED: DICYCLOMINE HCL 20 MG TABLET PO PRN (15:30)
[2018-02-15] MEDS ORDERED: HYDROXYZINE PAMOATE 25 MG CAPSULE PO SCH (15:30)
[2018-02-15] MEDS ORDERED: CLONIDINE HCL 0.1 MG TABLET PO PRN (15:30)
[2018-02-15 16:00] VITALS: BP 121/75
--- NOTE | 2018-02-15 16:00 | NUR ---
COWS AND CIWA ASSESSMENT 1600 COWS 16 AND CIWA 18. Pt has been isolative in room, fidgety and touches his face nervously when he speaks, pt presents pupil dilation, runny nose, sweating, chills, cold/hot flashes, anxiety, agitation, restlessness, generalized body aches, stomach cramps, nausea, poor appetite, difficulty concentrating, dysphoria, anhedonia, clammy skin and has gross tremors.
--- NOTE | 2018-02-15 18:53 | NUR ---
END OF SHIFT Pt has been isolative in room during shift. Last COWS 16 and CIWA 18 @1600. Pt restlessly moves around and touches his face nervously when he speaks, has poor eye contact. Pt presents pupil dilation, runny nose, sweating, chills, cold/hot flashes, anxiety, agitation, restlessness, generalized body aches, stomach cramps, nausea, poor appetite, difficulty concentrating, dysphoria, anhedonia, clammy skin and has gross tremors.No prns given during shift. Fluid intake 1500 ml, voidedx3, bm 0. Ate mostly 25-50 % of meals. Safety measures in place. Will given endorsement to security shift manager nurse.
--- NOTE | 2018-02-15 19:12 | NUR ---
Start of shift note Received report from day shift nurse. Pt is a 27 yo male, A+Ox4, presenting to [facility] for ETOH/Opiate/Meth withdrawal. Pt noted to be restless, agitated, and anxious. Pt has HX of Anxiety, depression, insomnia, Bulimia, withdrawal induced delirium, and cardiac arrest which will be monitored during shift. Pt is on 5 day Valium and 5 day Subutex tapers, tolerated well. Respirations even and unlabored. Will continue to monitor.
[2018-02-15 20:02] VITALS: BP 126/74
--- NOTE | 2018-02-15 20:02 | NUR ---
COWS and CIWA Assessment COWS: 12 and CIWA: 13. Pt noted with sweat on forehead, restlessness, enlarged pupils, body aches, stuffy nose, nausea, stomach cramps, yawning, anxiety, agitation, fine tremors, and mild headache. Respirations even and unlabored. Will continue to monitor.
[2018-02-15] MEDS ORDERED: OXYMETAZOLINE NASAL 0.05% 15 ML SPRAY NS PRN (21:45)
[2018-02-15] MEDS ORDERED: 5 DAY TAPER BUPRENORPHINE -SERENITY PROTOCOL SL PRN (22:45)
[2018-02-15] MEDS ORDERED: 5 DAY TAPER VALIUM-SERENITY PROTOCOL PO PRN (22:45)
--- NOTE | 2018-02-16 00:10 | NUR ---
V/S Refused, COWS and CIWA deferred for sleep. Respirations even and unlabored. Will continue to monitor.
--- NOTE | 2018-02-16 04:20 | NUR ---
V/S Refused, COWS and CIWA deferred for sleep. Respirations even and unlabored. Will continue to monitor.
--- NOTE | 2018-02-16 07:00 | NUR ---
End of shift note Pt was continuously noted with agitation, restlessness, and anxiety. Pt remained in room for majority of shift except to get food from kitchen and to go smoke on smoking patio. Pt remained cooperative and compliant with all aspects of treatment. Pt was not given any PRN medications during shift. Pt is on 5 day Valium and 5 day Subutex tapers tolerated well. Pt slept for a total of 5 HRS. Last COWS: 12 and Last CIWA: 13 @2001. Respirations even and unlabored. Will endorse to day shift nurse.
--- NOTE | 2018-02-16 07:30 | NUR ---
START OF SHIFT Pt 27 y/o male admitted for etoh and opiate withdrawal. Pt received in room with eyes closed resting. Pt alert and oriented to name, place, and time. Perrla. Skin warm and moist to touch. Respirations even and unlabored. Bilateral hand tremors noted. Pt appears disheveled. Clothes and food wrappings scattered throughout the room. Encouraged to maintain hygiene. It was reported that pt slept for 5 hours last night. Last reported cows=12 ciwa=13 @ 1999. Pt is on a 5 day valium taper and is on day 2. Pt also on a 5 day subutex taper and is on day 2. Bed on lowest position with channel marketing coordinator rails x2 up for safety. Call light within reach.
[2018-02-16 08:00] VITALS: BP 100/60
--- NOTE | 2018-02-16 08:00 | NUR ---
COWS/ CIWA ASSESSMENT Pt with cows=15and ciwa=13. Pt restless. Sweat noted on forehead and arms. Bilater hand tremors noted. Pt easily irritible.
[2018-02-16] MEDS: BUPRENORPHINE HCL 2 MG TAB.SUBL SL SCH ×3 (08:44→21:53)
[2018-02-16] MEDS: THIAMINE HCL 100 MG TABLET PO SCH (08:44)
[2018-02-16] MEDS: MULTIVITAMINS,THERAPEUTIC TABLET PO SCH (08:45)
[2018-02-16] MEDS: FOLIC ACID 1 MG TABLET PO SCH (08:45)
[2018-02-16] MEDS: DIAZEPAM 10 MG TABLET PO SCH ×3 (08:45→21:53)
[2018-02-16 10:09] LABS: HEPATITIS B SURFACE AG Negative (Negative)
[2018-02-16 12:00] VITALS: BP 141/90
--- NOTE | 2018-02-16 12:00 | NUR ---
COWS/ CIWA ASSESSMENT Pt with cows=15and ciwa=13. Pt restless. Sweat noted on forehead and arms. Bilater hand tremors noted. Pt easily irritible.
[2018-02-16 16:00] VITALS: BP 121/85
--- NOTE | 2018-02-16 16:00 | NUR ---
COWS/ CIWA ASSESSMENT Pt with cows=15and ciwa=13. Pt restless and irritable. Sweat noted on forehead and arms. Bilater hand tremors noted. Pt easily irritible.
--- NOTE | 2018-02-16 16:26 | NUR ---
Client was prompted to attend twice daily group therapy sessions.
--- NOTE | 2018-02-16 19:28 | NUR ---
END OF SHIFT Pt 27 y/o male admitted for etoh and opiate withdrawal. Pt alert and oriented to name, place, and time. Perrla. Skin warm and moist to touch. Respirations even and unlabored. Bilateral hand tremors noted. Pt appears disheveled. Empty water bottles scattered throughout the room. Encouraged to maintain hygiene. Pt with low motivation for self care. Pt isolative to room throughout the day. Pt did not attend group activity. Pt was seen by MD. Pt medication compliant . Pt was seen by MD today. Last cows=15 ciwa=13. Pt is on a 5 day valium taper and is on day 2. Pt also on 5 day subutex and is on day 2. Bed on lowest position with side rails x2 up for safety. Call light within reach.
--- NOTE | 2018-02-16 19:29 | NUR ---
Start of shift note Received report from day shift nurse. Pt is a 27 yo male, A+Ox4, presenting to [facility] for ETOH/Opiate/Meth withdrawal. Pt noted to be anxious, agitated, and restless. Pt has HX of anxiety, depression, insomnia, bulimia, delirium, and cardiac arrest which will be monitored during shift. Pt is on 5 day Valium and 5 day Subutex tapers, tolerated well. Respirations even and unlabored. Will continue to monitor.
[2018-02-16 20:07] VITALS: BP 123/72
--- NOTE | 2018-02-16 20:07 | NUR ---
COWS and CIWA Assessment COWS: 11 and CIWA: 10. Pt noted with flush face, sweat on forehead, restlessness, enlarged pupils, stuffy nose, fine tremors, yawning, anxiety, and agitation. Respirations even and unlabored. Will continue to monitor.
--- NOTE | 2018-02-16 21:53 | NUR ---
Medication refusal Pt refused Subutex administration stating, " I will just take the Valium, i don't feel like i need Subutex right now". Medication held. Will continue to monitor.
--- NOTE | 2018-02-17 00:15 | NUR ---
COWS and CIWA Assessment V/S refused and COWS and CIWA deferred for sleep. Respirations even and unlabored. Will continue to monitor.
--- NOTE | 2018-02-17 04:36 | NUR ---
COWS and CIWA Assessment V/S refused, COWS and CIWA deferred for sleep. Respirations even and unlabored. Will continue to monitor.
--- NOTE | 2018-02-17 07:00 | NUR ---
End of shift note Pt was continuously noted with restlessness, agitation, and anxiety. Pt remained in room for majority of shift except to get food from kitchen and to go smoke on smoking patio. Pt remained cooperative and compliant with all aspects of treatment. Pt was not given any PRN medications during shift. Pt refused 2100 dose of Subutex. Pt is on 5 day Valium and 5 day Subutex tapers, tolerated well. Pt slept for a total of 6 HRS. Last COWS: 11 and Last CIWA: 10 @1999. Respirations even and unlabored. Will endorse to day shift nurse.
--- NOTE | 2018-02-17 07:30 | NUR ---
START OF SHIFT Pt 27 y/o male admitted for etoh and opiate withdrawal. Pt received in room with eyes closed resting. Pt alert and oriented to name, place, and time. Perrla. Skin warm and moist to touch. Respirations even and unlabored. Bilateral hand tremors noted. Pt appears disheveled. Empty drink bottles scattered throughout the room. Encouraged to maintain hygiene. It was reported that pt slept for 6 hours last night. Last reported cows=11 ciwa=10 @2000. Pt is on a 5 day valium taper and is on day 3. Pt also on a 5 day subutex taper and is on day 3. It was reported that pt refused a subutex scheduled dose last night. Bed on lowest position with side rails x2 up for safety. Call light within reach.
[2018-02-17 08:00] VITALS: BP 118/76
--- NOTE | 2018-02-17 08:00 | NUR ---
CIWA/ COWS ASSESSMENT pt with ciwa=10 cows=11. Pt observed under blankets in room shivering. Pt also complains of sweats at times. Bilateral hand tremors noted. Pt anxious and irritable. Pt with c/o body aches.
--- NOTE | 2018-02-17 08:55 | NUR ---
PRN VISTARIL CATAPRES Pt anxious and restless, kept stating, " I don't know. I feel really anxious right now." , as pt was pacing around in his room. Vistaril po prn per MD order given and tolerated well. Catapres po prn per MD order given and tolerated well. Addendum: 02/17/18 at 0904 by LOUIE MCCULLOUGH RN incorrect pt
[2018-02-17] MEDS ORDERED: BUPRENORPHINE HCL 2 MG TAB.SUBL SL SCH (09:00)
--- NOTE | 2018-02-17 09:00 | NUR ---
SUBUTEX REFUSAL Pt refused subutex 2mg dose at 0900. Pt states "I don't need it. I'm okay." Pt still refused even with encouragement for medication compliance.
[2018-02-17] MEDS: THIAMINE HCL 100 MG TABLET PO SCH (09:01)
[2018-02-17] MEDS: DIAZEPAM 5 MG TABLET PO SCH ×4 (09:01→21:00)
[2018-02-17] MEDS: FOLIC ACID 1 MG TABLET PO SCH (09:01)
[2018-02-17] MEDS: MULTIVITAMINS,THERAPEUTIC TABLET PO SCH (09:01)
[2018-02-17 12:00] VITALS: BP 120/80
--- NOTE | 2018-02-17 12:00 | NUR ---
COWS/ CIWA ASSESSMENT cows=11 ciwa=10. Pt with bilateral hand tremors noted. Pt still agitated, irritable, and anxious. Pt remains isolative to room.
[2018-02-17] MEDS: BUPRENORPHINE HCL 2 MG TAB.SUBL SL SCH ×2 (14:49→21:00)
--- NOTE | 2018-02-17 14:53 | NUR ---
SUBUTEX REFUSAL Pt refused subutex 2mg dose at 1454. Pt states "I'm okay." Pt still refused even with encouragement for medication compliance.
[2018-02-17 16:00] VITALS: BP 116/65
--- NOTE | 2018-02-17 16:00 | NUR ---
CIWA/ COWS ASSESSMENT cows=12 ciwa=11. Pt with c/o chills/ sweats, body aches, bilateral hand tremors, anxiety, and agitation. Pt refused subutex doses today.
--- NOTE | 2018-02-17 17:22 | NUR ---
PRN MIRALAXX Pt states is constipated. Miralaxx po mix solution prn per MD order given and tolerated well.
[2018-02-17 17:39] LABS: BILIRUBIN,TOTAL 0.7 mg/dL (0.2-1.0); CREATININE 1.1 mg/dL (0.6-1.3)
[2018-02-17 17:40] LABS: TOTAL PROTEIN, SERUM 6.9 g/dL (6.4-8.2)
--- NOTE | 2018-02-17 19:11 | NUR ---
END OF SHIFT Pt 27 y/o male admitted for etoh and opiate withdrawal. Pt alert and oriented to name, place, and time. Perrla. Skin warm and moist to touch. Respirations even and unlabored. Bilateral hand tremors noted. Pt appears disheveled and unkempt. Clothes, empty drink bottles, and food wrappings scattered throughout the room. Encouraged to maintain hygiene. Pt with flat affect, isolative with minimal peer interaction today. Pt remained mostly isolative to room throughout the day. Pt selective with medications today, refusing to take the scheduled subutex doses. Pt attended group activity. Pt was seen by MD today. Last cows=12 ciwa=11 @ 1600. Pt is on a 5 day valium taper and is on day 3. Pt also on 5 day subutex taper and is on day 3. Bed on lowest position with side rails x2 up for safety. Call light within reach.
--- NOTE | 2018-02-17 19:12 | NUR ---
Start of shift note Received report from day shift nurse. Pt is a 27 yo male, A+Ox4, presenting to [facility] for ETOH/Opiate/Meth withdrawal. Pt noted with fatigue, agitation, and anxiety. Pt has HX of anxiety, depression, insomnia, bulimia, delirium, and cardiac arrest which will be monitored during shift. Pt is on 5 day Valium and 5 day Subutex tapers, tolerated well. Respirations even and unlabored. Will continue to monitor.
[2018-02-17 20:06] VITALS: BP 107/49
--- NOTE | 2018-02-17 20:06 | NUR ---
COWS and CIWA Assessment COWS: 8 and CIWA: 8. Pt noted with flush face, sweat on forehead, restlessness, enlarged pupils, runny nose, fine tremors, yawning, anxiety, and agitation. Respirations even and unlabored. Will continue to monitor.
--- NOTE | 2018-02-17 21:00 | NUR ---
Medication Refusal Pt refused scheduled Subutex and Valium stating, "I fell ok, i don't think i need to take it tonight." Respirations even and unlabored. Will continue to monitor. Addendum: 02/18/18 at 0011 by RIKKI BOYD LVN Feel
--- NOTE | 2018-02-18 00:04 | NUR ---
COWS and CIWA Assessment V/S refused and COWS and CIWA deferred for sleep. Pt is resting well in bed. Respirations even and unlabored. Will continue to monitor.
--- NOTE | 2018-02-18 04:13 | NUR ---
COWS and CIWA Assessment V/S refused. COWS and CIWA deferred for sleep. Pt is resting well in bed. Respirations even and unlabored. Will continue to monitor.
--- NOTE | 2018-02-18 07:00 | NUR ---
End of shift note Pt was continuously noted with fatigue, agitation, and anxiety. Pt remained in room for majority of shift except to get food from kitchen and to go smoke on smoking patio. Pt remained cooperative and compliant with all aspects of treatment. Pt was not given any PRN medications during shift. Pt is on 5 day Valium and 5 day Subutex tapers, tolerated well. Pt slept for a total of 9 HRS. Last COWS: 8 and Last CIWA: 8 @2000. Respirations even and unlabored. Will endorse to day shift nurse.
--- NOTE | 2018-02-18 07:30 | NUR ---
START OF SHIFT Pt 27 y/o male admitted for etoh and opiate withdrawal. Pt received in room on bed with eyes closed resting, but easily arousable to name. Pt alert and oriented to name, place, and time. Perrla. Skin warm and moist to touch. Bilateral hand tremors noted. Pt appears disheveled and unkempt. Clothes, food wrappings, and empty drink bottles scattered throughout the room. Encouraged to maintain hygiene. Pt appears anxious, and pt observed under the blankets shivering. It was reported that pt slept for 9 hours last night. Pt is on a 5 day valium taper and is on day 4. Pt is also on a 5 day subutex taper and is on day 4. Last cows=8 cwia=8 reported @ 1999. It was reported that pt refused taper medications last night. Bed on lowest position with side rails x2 up for safety. Call light within reach.
[2018-02-18 08:00] VITALS: BP 98/52
--- NOTE | 2018-02-18 08:00 | NUR ---
COWS/ CIWA ASSESSMENT cows=10 ciwa=10. Pt with bilateral hand tremors noted. Pt observed in bed under the covers shivering. Pt with nasal congestion, intermittent perspiration. Anxiety and irritability noted. Pt with some sensory disturbances, observed rubbing eyes and closing eyes at times when assessing pt this morning.
[2018-02-18] MEDS: MULTIVITAMINS,THERAPEUTIC TABLET PO SCH (08:35)
[2018-02-18] MEDS: DIAZEPAM 5 MG TABLET PO SCH ×3 (08:35→20:57)
[2018-02-18] MEDS: THIAMINE HCL 100 MG TABLET PO SCH (08:35)
[2018-02-18] MEDS: FOLIC ACID 1 MG TABLET PO SCH (08:35)
[2018-02-18] MEDS: BUPRENORPHINE HCL 2 MG TAB.SUBL SL SCH ×3 (08:36→20:57)
--- NOTE | 2018-02-18 09:00 | NUR ---
SUBUTEX REFUSAL Pt refused subutex po scheduled at 0900 even with encouragement.
[2018-02-18 12:00] VITALS: BP 113/69
--- NOTE | 2018-02-18 12:00 | NUR ---
CIWA/ COWS ASSESSMENT ciwa=11 cows=12. Pt with bilateral and tremors noted. Pt with complaints of intermittent perspiration. Pt appears irritable. Pt appears with some sensor disturbances, looking around in the room while talking to me.
--- NOTE | 2018-02-18 14:57 | NUR ---
SUBUTEX REFUSAL Pt refused subutex sl scheduled at 1457 even with encouragement.
[2018-02-18 16:00] VITALS: BP 95/85
--- NOTE | 2018-02-18 16:00 | NUR ---
COWS/ CIWA ASSESSMENT cows=12 ciwa=10. Pt with bilateral hand tremors noted. Pt anxious and restless, cannot lay still in bed. Appears irritable with pressured speech noted. Some sense of panic noted, appears jumpy when knocking and open his door. Complaints of body aches noted.
--- NOTE | 2018-02-18 18:50 | NUR ---
END OF SHIFT Pt 27 y/o male admitted for etoh and opiate withdrawal. Pt alert and oriented to name, place, and time. Perrla. Skin warm and moist to touch. Respirations even and unlabored. Bilateral hand tremors noted. Pt appears disheveled and unkempt. Clothes are dirty. Clothes and empty drink bottles scattered throughout the room. Encouraged to maintain hygiene. Pt with periods of anxiety this morning. Pt with low motivation for self care. Pt isolative throughout the day with minimal peer interaction. Pt did not attend group activity. Pt was seen by MD today. Pt selective with medications, refusing to take scheduled subutex doses today. Last ciwa=10@1600.cows= 12 @ 1600@1600 Pt is on a 5 day valium taper and is on day 4. Pt is also on a 5 day subutex taper and is on day 4. Bed on lowest position with side rails x2 up for safety. Call light within reach.
--- NOTE | 2018-02-18 19:30 | NUR ---
START OF SHIFT Pt is a 27 y/o male admitted on 02/14/18 for ETOH, opiate and meth withdrawal. Pt is on a 5 day Valium and 5 day Subutex taper, tolerating Valium well. Pt refused all scheduled Subutex today. Last COWS 12 and CIWA 10 and no PRNs administered during day shift. Upon assessment pt presents with anxiety, agitation, flat affect, depressed affect, difficulty falling asleep, restlessness, constipation, poor eye contact, unkempt room, sweats, and is isolative. Medications due. Safety measures in place. Call light within reach. Will continue to monitor.
[2018-02-18 20:00] VITALS: BP 122/63
--- NOTE | 2018-02-18 20:00 | NUR ---
COWS/CIWA ASSESSMENT Pt presents with anxiety, agitation, flat affect, depressed affect, difficulty falling asleep, restlessness, constipation, poor eye contact, unkempt room, sweats, and is isolative. Pt states, "I don't want my Subutex tonight." Pt educated about risks/benefits of medication, pt verbalized understanding.
[2018-02-18] MEDS: MAGNESIUM HYDROXIDE 30 ML LIQUID UDC PO PRN (20:57)
--- NOTE | 2018-02-18 20:57 | NUR ---
PRN MILK OF MAG ADMINISTRATION Pt reports constipation. Pt reports that he had a BM today, but that it was small and hard. Pt requests medication for constipation. Encouraged increased fluid intake. Safety measures in place. Call light within reach. Will continue to monitor
--- NOTE | 2018-02-18 21:57 | NUR ---
PRN MILK OF MAG REASSESSMENT Pt denies having a BM yet, will continue to monitor. Encouraged increased fluid intake. Safety measures in place. Call light within reach. Will continue to monitor.
--- NOTE | 2018-02-19 | NUR ---
COWS/CIWA DEFERRED AND VITALS REFUSED Pt laying in bed with eyes closed, COWS/CIWA deferred, to be assessed when pt is awake per orders. Vitals refused. Safety measures in place. Call light within reach. Will continue to monitor.
--- NOTE | 2018-02-19 07:04 | NUR ---
END OF SHIFT Pt is a 27 y/o male admitted on 02/14/18 for ETOH, opiate and meth withdrawal. Pt is on a 5 day Valium and 5 day Subutex taper, tolerating Valium well. Pt refused scheduled Subutex, educated pt about risks/benefits about medication. Pt presented with anxiety, agitation, flat affect, depressed affect, difficulty falling asleep, restlessness, constipation, poor eye contact, unkempt room, sweats, and was isolative. Scheduled medications and PRN Milk of Mag administered, effective in S/S of withdrawal as verbalized by pt. Last CIWA 10 and COWS 10. Pt slept 9 hours. Intake 1200 ml, void x 1, stool x 0. Safety measures in place. Call light within reach. Pts needs have been met. Endorsed to day shift nurse.
--- NOTE | 2018-02-19 07:40 | NUR ---
START OF SHIFT Pt is a 27 y/o M admitted on 02/14/18 for medically supervised ETOH, opiate and meth withdrawal. Today is the 5th day of a 5 day Valium taper and a 5 day Subutex taper and tolerating well. Pt's room is messy, clothes on the floor, drink bottles and snack wrappers on counters. Pt is covered in the blanket, has a flat affect, poor eye contact, is soft spoken, pt touches his face anxiously when talking. Pt presents irritability, anxiety, agitation, restlessness, difficulty concentrating, c/o and tremors are noted. Last COWS 10 and CIWA 10. Pt has been given MOM PRN last night. Side rails upx2, bed is in low position. Call light within reach. Will continue to monitor.
[2018-02-19 08:00] VITALS: BP 97/62
--- NOTE | 2018-02-19 08:00 | NUR ---
COWS 10 AND CIWA 10 Pt is covered in the blanket, has a flat affect and poor eye contact. Pt is soft spoken, appears anxious; pt touches his face anxiously when talking. Pt presents irritability, anxiety, agitation, restlessness, difficulty concentrating, dysphoria, anhedonia, and tremors are noted.
[2018-02-19] MEDS: FOLIC ACID 1 MG TABLET PO SCH (08:29)
[2018-02-19] MEDS: THIAMINE HCL 100 MG TABLET PO SCH (08:29)
[2018-02-19] MEDS: MULTIVITAMINS,THERAPEUTIC TABLET PO SCH (08:29)
[2018-02-19] MEDS: DIAZEPAM 5 MG TABLET PO SCH ×2 (08:29→21:52)
[2018-02-19] MEDS ORDERED: BUPRENORPHINE HCL 2 MG TAB.SUBL SL SCH (09:00)
[2018-02-19 12:00] VITALS: BP 102/63
--- NOTE | 2018-02-19 12:00 | NUR ---
COWS 10 AND CIWA 10 Pt continues to appears anxious; pt touches his face anxiously and speaking softly. Pt presents irritability, anxiety, agitation, restlessness, difficulty concentrating, dysphoria, anhedonia, and tremors are noted. Encouraged pt to use non-pharmacological ways to decreased anxiety and promote relaxation. Addendum: 02/19/18 at 1401 by CHIDI ORTEGA RN COWS 9 and CIWA 8.
[2018-02-19 16:00] VITALS: BP 138/60
--- NOTE | 2018-02-19 16:35 | NUR ---
COWS 10 AND CIWA 10 Pt came out of 1630 group, appears anxious, pt speaks softly with no eye contact. Pt presents irritability, anxiety, agitation, restlessness, generalized body aches, dysphoria, anhedonia, and tremors are noted. Denies prns at this time. Will continue to closely monitor.
--- NOTE | 2018-02-19 19:15 | NUR ---
END OF SHIFT Pt has completed a 5 day subutex and valium taper today and is scheduled to be discharged tomorrow. Pt has been isolative in room and is very quiet, however attended all groups throughout the day. Last COWS 9 and CIWA 8 @1600. No prns given during shift. Pt ate 75% of meals. Fluid intake 1000 ml, voided x 3, bm 0. Safety measures in place. Will give endorsement to operations supervisor 2nd shift nurse.
--- NOTE | 2018-02-19 19:30 | NUR ---
Start of Shift Note Received a 27 y/o male px, admitted for medically supervised withdrawal from ETOH, and Heroin. Px was put on 5 day Valium and 5 day Subutex taper started on 02/15/2018. Px is tolerating them. Last reported COWS 9 and CIWA 8. During the rounds at 1930, px is awake on bed in fowlers position watching TV. Px appears anxious, depressed with flat affect. Px has good eye contact though. Px stated that his anxiety is low at the moment. Px complained of constipation for 4 days. Bed on lowest position, side rails up 2x and call light within reach. We'll continue to monitor.
[2018-02-19 20:00] VITALS: BP 120/59
--- NOTE | 2018-02-19 20:00 | NUR ---
COWS 6 and CIWA 7 Px appears anxious and depressed. He has good eye contact. Px stated that his anxiety is low. No complaints at the moment.
[2018-02-19] MEDS: MAGNESIUM HYDROXIDE 30 ML LIQUID UDC PO PRN (21:52)
--- NOTE | 2018-02-19 21:52 | NUR ---
PRN milk of magnesia Px received MOM 30 ml PO for 4 days of constipation. we'll continue to monitor.
--- NOTE | 2018-02-19 23:00 | NUR ---
Reassessment of CIWA CIWA 7 after an hour of administration of Valium 5 mg PO. Px is trying to sleep already. Px still appears anxious and depressed. He has good eye contact. No complaints made.
[2018-02-20] VITALS: BP 116/63
--- NOTE | 2018-02-20 | NUR ---
COWS and CIWA deferred COWS and CIWA deferred due to the px is asleep, to assess if the px is awake per doctor's order. We'll continue to monitor.
[2018-02-20 04:00] VITALS: BP 111/68
--- NOTE | 2018-02-20 07:05 | NUR ---
End of Shift Note During the shift at 2152, px received milk of magnesia 30 ml for constipation. Px oral intake is 1200 ml, voided 2x, with 1x BM. Px slept for 6.5 hours. At 0630, px is asleep on bed in right side lying position. Last COWS 6 and CIWA 7. Bed on lowest position, side rails up 2x and call light within reach. We'll continue to monitor. Endorsed to AM shift nurse.
[2018-02-20 08:00] VITALS: BP 90/54
--- NOTE | 2018-02-20 08:00 | NUR ---
COWS and CIWA: COWS 3 and CIWA 3. Pt noted with mild discomfort, slight tremor, mild anxiety/agitation. Addendum: 02/20/18 at 1824 by SOFY GRAVES RN Correction: COWS 4
--- NOTE | 2018-02-20 08:00 | NUR ---
Start of Shift Notes: Report received from dental equipment repairer nurse. Previous COWS 6 and CIWA 7 at 1999. Upon start of shift, pt was in bed with eyes closed. Pt was mildly diaphoretic with no other withdrawal symptoms. During assessment, pt is AOx3. Respirations even and unlabored. Radial pulse is regular and non-bounding. Abdomen soft and non-tender. Skin is warm and dry. Pt denies pain at this time. Pt has completed 5-day Valium and 5-day Subutex taper to manage withdrawal symptoms and is scheduled to be discharged tomorrow. COWS 4 and CIWA 3. Bed in lowest position. Side rails up x2. Call light functioning and within reach. All needs attended and met. Will continue to monitor.
[2018-02-20 08:02] LABS: BILIRUBIN,TOTAL 0.4 mg/dL (0.2-1.0); CREATININE 0.9 mg/dL (0.6-1.3); POTASSIUM 3.9 mmol/L (3.5-5.1); TOTAL PROTEIN, SERUM 6.7 g/dL (6.4-8.2)
[2018-02-20] MEDS: FOLIC ACID 1 MG TABLET PO SCH (09:04)
[2018-02-20] MEDS: THIAMINE HCL 100 MG TABLET PO SCH (09:04)
[2018-02-20] MEDS: MULTIVITAMINS,THERAPEUTIC TABLET PO SCH (09:04)
[2018-02-20 12:00] VITALS: BP 114/68
--- NOTE | 2018-02-20 12:00 | NUR ---
COWS and CIWA: COWS 3 and CIWA 3. Pt noted with mild discomfort, slight tremor, mild anxiety/agitation.
[2018-02-20 16:00] VITALS: BP 120/71
--- NOTE | 2018-02-20 17:00 | NUR ---
COWS and CIWA: COWS 2 and CIWA 2. Pt noted with slight tremor, mild anxiety/agitation.
--- NOTE | 2018-02-20 19:13 | NUR ---
End of Shift: Pt prompted to go to group activity. Pt denies any withdrawal symptoms. No PRNs given during shift. Pt to be discharged tomorrow morning. COWS was 4 at 0800, 3 at 1200, and 2 at 1600. CIWA was 3 at 0800, 3 at 1200, and 2 at 1600. Will endorse to customer counter associate nurse.
--- NOTE | 2018-02-20 19:30 | NUR ---
START OF SHIFT NOTE RECEIVED REPORT FROM DAY SHIFT. PATIENT IS A 27 YEAR OLD MALE ADMITTED FOR ETOH/OPIATE WITHDRAWAL. PATIENT COMPLETED VALIUM AND SUBUTEX TAPER. PATIENT IS MEDICALLY CLEARED TO BE DISCHARGE TOMORROW. PATIENT DID NOT REQUIRE PRN MEDICATION. LAST COWS 2 AND CIWA 2. PATIENT IN THE ROOM, WATCHING TV. RESPIRATION EVEN AND UNLABORED. NO SOB. PATIENT WITH FLAT AFFECT AND DEPRESSED MOOD. SAFETY MEASURES IN PLACE. CALL LIGHT IN REACH. WILL CONTINUE TO MONITOR
[2018-02-20 20:00] VITALS: BP 111/61
--- NOTE | 2018-02-20 20:00 | NUR ---
COWS AND CIWA ASSESSMENT PATIENT PRESENT WITH FLAT AFFECT, DEPRESSED MOOD, ANXIETY AND SWEATING. COWS 3 AND CIWA AT THIS TIME. WILL CONTINUE TO MONITOR.
[2018-02-21] VITALS: BP 106/64
--- NOTE | 2018-02-21 | NUR ---
COWS AND CIWA DEFERRED PATIENT LYING IN BED WITH EYES CLOSED. RESPIRATION EVEN AND UNLABORED. WILL CONTINUE TO MONITOR
[2018-02-21 04:00] VITALS: BP 98/58
--- NOTE | 2018-02-21 04:00 | NUR ---
COWS AND CIWA DEFERRED PATIENT LYING IN BED WITH EYES CLOSED. RESPIRATION EVEN AND UNLABORED. WILL CONTINUE TO MONITOR
--- NOTE | 2018-02-21 07:11 | NUR ---
END OF SHIFT NOTE PATIENT SLEPT 6 HOURS. FLUID INTAKE 1,263 ML. VOIDED X 2. NO BM. MONITORED PATIENT THROUGHOUT SHIFT. PATIENT IN HIS ROOM MOST OF THE SHIFT. PATIENT WITHDRAWN AND TENDS TO ISOLATE SELF. PATIENT WITH FLAT AFFECT AND DEPRESSED MOOD. PATIENT IS MEDICALLY CLEARED TO BE DISCHARGE TODAY. PATIENT DID NOT REQUIRE PRN MEDICATION . LAST COWS AND CIWA. SAFETY MEASURES IN PLACE. CALL LIGHT IN REACH. WILL CONTINUE TO MONITOR. LAST COWS 3 AND CIWA 3.
--- NOTE | 2018-02-21 07:30 | NUR ---
START OF SHIFT Pt is a 27 y/o M admitted on 02/14/18 for medically supervised ETOH, opiate and meth withdrawal. Pt has completed a 5 day Valium taper and a 5 day Subutex taper and is medically cleared to be discharged today. Pt's room is messy, clothes on the floor, drink bottles and snack wrappers on counters. Pt has a flat affect, poor eye contact, is soft spoken, and has a depressive mood. Last COWS 3 and CIWA 3. No PRNs given last night. Side rails upx2, bed is in low position. Call light within reach. Will continue to monitor.
[2018-02-21 08:00] VITALS: BP 101/61
--- NOTE | 2018-02-21 08:00 | NUR ---
COWS 3 AND CIWA 3 Pt presents anxiety, restlessness and mild diaphoresis. Pt is getting ready for discharge at this time.
[2018-02-21] MEDS: MULTIVITAMINS,THERAPEUTIC TABLET PO SCH (08:52)
[2018-02-21] MEDS: FOLIC ACID 1 MG TABLET PO SCH (08:52)
[2018-02-21] MEDS: THIAMINE HCL 100 MG TABLET PO SCH (08:52)
--- NOTE | 2018-02-21 09:50 | NUR ---
DISCHARGE NOTE Pt is in stable condition, VS wnl. Pt has been given d/c instructions and pt verbalized understanding. Last cows 3 and ciwa 3. Pt has left the building at 0950 on 02/21/18 with all belongings, discharge paperwork. aware of pt discharge. Pt has been picked up by [employer].
== END 2018-02-21 09:50 | disposition other institution (70) | DRG 895 ==
LOC: SRC 20:34
PROVIDERS: ADMIT Family Medicine Addiction Medicine; ATTEND Family Medicine Addiction Medicine
PROC: HZ2ZZZZ Detoxification Services for Substance Abuse Treatment (ICD-10-PCS; principal; 2018-02-14)
PROC: HZ31ZZZ Individual Counseling for Substance Abuse Treatment, Behavioral (ICD-10-PCS; 2018-02-16)
PROC: HZ41ZZZ Group Counseling for Substance Abuse Treatment, Behavioral (ICD-10-PCS; 2018-02-16)
DX: F10.230 Alcohol dependence with withdrawal, uncomplicated (principal); F11.23 Opioid dependence with withdrawal; Y90.5 Blood alcohol level of 100-119 mg/100 ml; F15.23 Other stimulant dependence with withdrawal; E83.51 Hypocalcemia; E87.6 Hypokalemia; Z59.0 Homelessness; Z81.3 Family history of other psychoactive substance abuse and dependence; F17.210 Nicotine dependence, cigarettes, uncomplicated; Z86.59 Personal history of other mental and behavioral disorders; F39 Unspecified mood [affective] disorder; F41.9 Anxiety disorder, unspecified
CPT/HCPCS: 36415; 70030-TC; 80307; 83690; 83735; 84443; 85025; 86580; 86592; 86705; 86803; 87340; 87806; 90732; G0480; J3411; Q0162